=== PATIENT | male | born 1955 ===

== ENCOUNTER 2020-10-01 20:17 | Inpatient (IN) | payer MEDICARE, SELFPAY ==
--- NOTE | 2020-10-01 20:26 | CT_ITS ---
EXAMINATION: CT HEAD WITHOUT CONTRAST (STROKE PROTOCOL) CLINICAL INFORMATION: Stroke protocol. COMPARISON: None TECHNIQUE: Contiguous axial imaging was performed from the skull base to vertex without intravenous administration of contrast. This CT examination was performed using dose optimization techniques as appropriate, variously including the following: *Automated exposure control *Adjustment of mA and/or kV according to patient size (this includes techniques or standardized protocols for targeted exams where dose is matched to indication/reason for exam; i.e. extremities or head) *Use of iterative reconstruction technique DLP: 722 mGy-cm FINDINGS: There is no intracranial hemorrhage, hematoma, or extra-axial fluid collection. The ventricles are normal in size. There is no hydrocephalus, edema, or mass effect. The smith-white matter differentiation appears symmetric. There is no acute infarct or mass lesion. There is age-appropriate atrophy with prominence of the ventricles and the sulci and hypodensity of the periventricular white matter due to chronic small vessel ischemic disease. There are vascular calcifications of the internal carotid arteries bilaterally. The visualized sinuses and middle ears and mastoid air cells show no significant mucosal thickening. There are no air-fluid levels. CT/CT head for stroke IMPRESSION: No acute intracranial pathology. This critical result was discussed with Dr. Rosa on 10/01/2020, 8:35 PM. It was ascertained that the content and urgency of the report was understood at the time of direct communication.
[2020-10-01 20:29] LABS: Glucose, Whole Blood 117 mg/dL (60-115)
[2020-10-01 20:30] LABS: Prothrombin Time Whole Bld POC 11.6 sec (11.1-13.5)
[2020-10-01 20:32] VITALS: BMI 33.7
[2020-10-01 20:35] VITALS: BP 158/58; PULSE 83; PULSE 96; RESP 22; TEMP 36.6; O2SAT 90; BMI 33.7
[2020-10-01] MEDS: LORazepam 2 MG/ML VIAL IVPUSH (20:40)
--- NOTE | 2020-10-01 20:47 | ECG_ITS ---
Test Reason : POSSIBLE STROKE Blood Pressure : / mmHG Vent. Rate : 085 BPM Atrial Rate : 085 BPM P-R Int : 160 ms QRS Dur : 120 ms QT Int : 394 ms P-R-T Axes : 027 017 -45 degrees QTc Int : 468 ms Normal sinus rhythm T-wave inversion in Inferior leads Left ventricular hypertrophy with QRS widening Inferior infarct , age undetermined Abnormal ECG No previous ECGs available Referred By: Laina Rosa Electronically Signed By:GUILLERMO DEY MD
[2020-10-01 20:51] LABS: MANUAL DIFF FLAG NO
[2020-10-01 20:52] LABS: Basophils Absolute Auto 0.1 X10*3/uL (0.0-0.2); Basophils Percent Auto 0.9 % (0-2); Eosinophils Absolute Auto 0.2 X10*3/uL (0.0-0.4); Eosinophils Percent Auto 2.9 % (0-4); Hematocrit 36.9 % (42-52); Hemoglobin 12.7 g/dl (14.0-18.0); Imm Gran Abs Auto 0.03 X10*3/uL (0.00-0.03); Imm Gran Pct Auto 0.5 % (0.0-0.4); Lymphocytes Percent Auto 29.8 % (20-40); Mean Corpuscular HGB Conc 34.4 g/dl (31.0-36.0); Mean Corpuscular Hemoglobin 31.1 pg (27.0-33.0); Mean Corpuscular Volume 90.4 fL (80-98); Mean Platelet Volume 9.7 fL (9.4-12.4); Monocytes Absolute Auto 0.6 X10*3/uL (0.1-1.2); Monocytes Percent Auto 8.8 % (2-11); Neutrophils Absolute Auto 3.8 X10*3/uL (2.0-8.3); Neutrophils Percent Auto 57.1 % (45-73); Platelet Count 233 X10*3/uL (160-400); Red Blood Count 4.08 X10*6/uL (4.60-5.80); Red Cell Distribution Width 13.2 % (11.0-16.0); White Blood Count 6.6 X10*3/uL (4.8-10.8)
--- NOTE | 2020-10-01 20:52 | ED_ITS ---
HPI - Neuro Symptoms/Deficit General Chief Complaint: Stroke Stated Complaint: STROKE ALERT,LANEYW 2 HOURS AGO Time Seen by Provider: 10/01/20 20:23 Source: patient Mode of arrival: ambulatory Limitations: no limitations History of Present Illness HPI Narrative: Patient is brought by EMS. According to the family, patient was seen last normal at 18:30, they noticed that the patient when outside of the house to smoke, at that time patient was at his baseline alert and oriented x4 and ambulatory. 2 hours later, around 830, they heard a loud grown, the family went to check on him. Patient was altered, awake, flailing his upper and lower extremities, the only comment that he was able to follow was to look them when asked to do so. Otherwise patient was unable to follow any other commands. When patient came here to the emergency room, his presentation was similar, the only comment that he was able to follow was to look at us, patient continued fleeting his upper and lower extremities. Patient was taken immediately to CT scan. I spoke to the patient's sister's who gave the above-mentioned history. Patient's only past medical history is a cardiac arrhythmia for which she has a defibrillator, hypertension, hyperlipidemia, and ?tumor in his heart?. Patient has no history of alcoholism, drug abuse, anxiety. Related Data Home Medications Medication Instructions Recorded Confirmed amlodipine 10 mg PO DAILY 10/01/20 10/01/20 atorvastatin 20 mg PO BEDTIME 10/01/20 10/01/20 losartan 25 mg PO DAILY 10/01/20 10/01/20 naproxen sodium [Aleve] 220 mg PO BID PRN 10/01/20 10/01/20 Allergies Allergy/AdvReac Type Severity Reaction Status Date / Time No Known Allergies Allergy Verified 10/01/20 20:33 Review of Systems Review of Systems: Yes Unobtainable due to mental condition [facility] Past Medical History Medical History High cholesterol HTN (hypertension) Pacemaker Tumor Social History Social History Alcohol intake: current Alcohol intake frequency: 3 or more drinks per day Alcohol type: beer and hard liquor Smoking Status: Current every day smoker Use of substances other than those prescribed or required for medical reasons: No Advance Directives: No Advance Directives Information Provided: No Physical Exam Vital Signs: Vital Signs: Last Vital Signs Temp 98.6 F 10/01/20 22:00 Pulse 22 L 10/01/20 22:00 Resp 22 H 10/01/20 22:00 BP 121/61 10/01/20 22:00 Pulse Ox 2 L 10/01/20 22:00 Body Mass Index 33.7 Appearance: Alert. Unable to follow commands except to look at those when asked to do so. Eyes: Pupils equal, round and reactive to light. ENT: Pharynx normal. Neck: Normal inspection. Neck supple. No lymph nodes noted. No crepitus CVS: Normal heart rate and rhythm. Pulses normal. Normal S1 and S2 Respiratory: No respiratory distress. Breath sounds normal. No Wheezing. No rales Abdomen: Soft does not seem tender No rigidity. No distention. good BS x4 Skin: Skin warm and dry. Extremities: Patient is flailing his upper and lower extremities, unable to squeeze. Patient was given Ativan, patient became more calm a now able to hold his left upper and lower extremities up when asked to do so, unable to do so on the right side,. Seems that he is trying to speak but no words are coming out. Patient is very anxious, unable to calculate NIH accurately, approximately score of 10 Neuro: Patient is awake, unable to speak, able to hold up his left upper and lower extremity, unable to do so on the right side. However when patient came in he was flailing all 4 extremities Course Course Course Narrative: Patient's 1st CT scan was within normal limits. I spoke to Dr. Gudino, at this time we will go ahead and get a CTA, if there is an obstruction the patient will be transferred to [facility], otherwise the patient will be admitted to this hospital. CTA does not show any obstruction. We received a phone call from the patient's niece, now have more information that the patient is a heavy daily drinker. At this time, delirium tremens is suspected. After 2 mg of Ativan, patient calmed down, patient is moving all extremities, patient answering yes no questions, still unable to speak. I spoke with our hospitalist, patient being admitted for further evaluation and treatment. MDM - Neuro Symptoms/Deficit MDM Narrative Medical decision making narrative: At this time, it is unclear if the patient had a TIA versus delirium tremens. At this time, CVA is less likely, no large vessel occlusion. Patient's neurological symptoms are waxing and waning, different in upper lower extremities right and left side , all different on physical exams, no clear pattern. Differential Diagnosis Differential diagnosis: Likely convulsions, delirium, cerebrovascular accident and transient cerebral ischemia Lab Data Result diagrams: 10/01/20 20:45 10/01/20 20:45 Labs: Lab Results 10/01/20 10/01/20 10/01/20 Range/Units 20:25 20:26 20:45 WBC 6.6 (4.8-10.8) X10*3/uL RBC 4.08 L (4.60-5.80) X10*6/uL Hgb 12.7 L (14.0-18.0) g/dl Hct 36.9 L (42-52) % MCV 90.4 (80-98) fL MCH 31.1 (27.0-33.0) pg MCHC 34.4 (31.0-36.0) g/dl RDW 13.2 (11.0-16.0) % Plt Count 233 (160-400) X10*3/uL MPV 9.7 (9.4-12.4) fL Immature Gran % (Auto) 0.5 H (0.0-0.4) % Neut % (Auto) 57.1 (45-73) % Lymph % (Auto) 29.8 (20-40) % [place] % (Auto) 8.8 (2-11) % Eos % (Auto) 2.9 (0-4) % Baso % (Auto) 0.9 (0-2) % Lymph # (Auto) 2.0 (1.2-4.9) X10*3/uL [place] # (Auto) 0.6 (0.1-1.2) X10*3/uL Eos # (Auto) 0.2 (0.0-0.4) X10*3/uL Baso # (Auto) 0.1 (0.0-0.2) X10*3/uL Abs Immat Gran (auto) 0.03 (0.00-0.03) X10*3/uL Absolute Neuts (auto) 3.8 (2.0-8.3) X10*3/uL Absolute Nucleated RBC 0.000 (0.0-0.012) X10*3/uL Nucleated RBC % (auto) 0.0 (0.0-0.2) /100WBC PT (10.8-13.0) SEC Whole Blood PT 11.6 (11.1-13.5) sec INR (0.9-1.1) Whole Blood INR 1.0 (0.9-1.1) Sodium (135-145) mmol/L Potassium (3.3-5.1) mmol/l Chloride (96-108) mmol/L Carbon Dioxide (22-29) mmol/L Anion Gap (12-20) BUN (9-16) mg/dL Creatinine (0.5-1.4) mg/dL Estim Creat Clear Calc Estimated GFR POC Glucose 117 H (60-115) mg/dL Random Glucose (60-115) mg/dL Calcium (8.4-10.2) mg/dL Troponin I High Sens (<3.5-35.0) ng/L Hold Red Top Ethyl Alcohol mg/dL Coronavirus (PCR) (Negative) 10/01/20 10/01/20 10/01/20 Range/Units 20:45 20:45 20:45 WBC (4.8-10.8) X10*3/uL RBC (4.60-5.80) X10*6/uL Hgb (14.0-18.0) g/dl Hct (42-52) % MCV (80-98) fL MCH (27.0-33.0) pg MCHC (31.0-36.0) g/dl RDW (11.0-16.0) % Plt Count (160-400) X10*3/uL MPV (9.4-12.4) fL Immature Gran % (Auto) (0.0-0.4) % Neut % (Auto) (45-73) % Lymph % (Auto) (20-40) % [place] % (Auto) (2-11) % Eos % (Auto) (0-4) % Baso % (Auto) (0-2) % Lymph # (Auto) (1.2-4.9) X10*3/uL [place] # (Auto) (0.1-1.2) X10*3/uL Eos # (Auto) (0.0-0.4) X10*3/uL Baso # (Auto) (0.0-0.2) X10*3/uL Abs Immat Gran (auto) (0.00-0.03) X10*3/uL Absolute Neuts (auto) (2.0-8.3) X10*3/uL Absolute Nucleated RBC (0.0-0.012) X10*3/uL Nucleated RBC % (auto) (0.0-0.2) /100WBC PT 11.3 (10.8-13.0) SEC Whole Blood PT (11.1-13.5) sec INR 1.0 (0.9-1.1) Whole Blood INR (0.9-1.1) Sodium 136 (135-145) mmol/L Potassium 3.7 (3.3-5.1) mmol/l Chloride 97 (96-108) mmol/L Carbon Dioxide 28 (22-29) mmol/L Anion Gap 15 (12-20) BUN 14 (9-16) mg/dL Creatinine 1.02 (0.5-1.4) mg/dL Estim Creat Clear Calc 70.7 Estimated GFR > 60 POC Glucose (60-115) mg/dL Random Glucose 116 H (60-115) mg/dL Calcium 9.6 (8.4-10.2) mg/dL Troponin I High Sens 30.1 (<3.5-35.0) ng/L Hold Red Top Ethyl Alcohol mg/dL Coronavirus (PCR) (Negative) 10/01/20 10/01/20 10/01/20 Range/Units 20:45 20:45 21:22 WBC (4.8-10.8) X10*3/uL RBC (4.60-5.80) X10*6/uL Hgb (14.0-18.0) g/dl Hct (42-52) % MCV (80-98) fL MCH (27.0-33.0) pg MCHC (31.0-36.0) g/dl RDW (11.0-16.0) % Plt Count (160-400) X10*3/uL MPV (9.4-12.4) fL Immature Gran % (Auto) (0.0-0.4) % Neut % (Auto) (45-73) % Lymph % (Auto) (20-40) % [place] % (Auto) (2-11) % Eos % (Auto) (0-4) % Baso % (Auto) (0-2) % Lymph # (Auto) (1.2-4.9) X10*3/uL [place] # (Auto) (0.1-1.2) X10*3/uL Eos # (Auto) (0.0-0.4) X10*3/uL Baso # (Auto) (0.0-0.2) X10*3/uL Abs Immat Gran (auto) (0.00-0.03) X10*3/uL Absolute Neuts (auto) (2.0-8.3) X10*3/uL Absolute Nucleated RBC (0.0-0.012) X10*3/uL Nucleated RBC % (auto) (0.0-0.2) /100WBC PT (10.8-13.0) SEC Whole Blood PT (11.1-13.5) sec INR (0.9-1.1) Whole Blood INR (0.9-1.1) Sodium (135-145) mmol/L Potassium (3.3-5.1) mmol/l Chloride (96-108) mmol/L Carbon Dioxide (22-29) mmol/L Anion Gap (12-20) BUN (9-16) mg/dL Creatinine (0.5-1.4) mg/dL Estim Creat Clear Calc Estimated GFR POC Glucose (60-115) mg/dL Random Glucose (60-115) mg/dL Calcium (8.4-10.2) mg/dL Troponin I High Sens (<3.5-35.0) ng/L Hold Red Top See Note Ethyl Alcohol 78 mg/dL Coronavirus (PCR) NEGATIVE (Negative) Imaging Data Head CT for stroke: Radiologist's impression: There is no intracranial hemorrhage, hematoma, or extra-axial fluid collection. The ventricles are normal in size. There is no hydrocephalus, edema, or mass effect. The smith-white matter differentiation appears symmetric. There is no acute infarct or mass lesion. There is age-appropriate atrophy with prominence of the ventricles and the sulci and hypodensity of the periventricular white matter due to chronic small vessel ischemic disease. There are vascular calcifications of the internal carotid arteries bilaterally. The visualized sinuses and middle ears and mastoid air cells show no significant mucosal thickening. There are no air-fluid levels. CT/CT head for stroke IMPRESSION: No acute intracranial pathology. [address] [address] [address] Scan Report Signed Patient: Lorin Delgado#: [id number] : 3Acct:[id number] Age/Sex: 65 / MADM Date: 10/01/20 Loc: HO.ED Attending Dr: Ordering Physician: FLORENCIO ROSA MD Date of Service: 10/01/20 Procedure(s): CT angio head neck stroke Accession Number(s): [id number] cc: FLORENCIO ROSA MD~ EXAMINATION: CTA NECK WITH CONTRAST (STROKE) CTA BRAIN WITH CONTRAST (STROKE) CLINICAL INFORMATION: Suspect acute stroke. Assess for major vessel occlusion. Please call report. COMPARISON: CT head performed earlier same date TECHNIQUE: CTA of the head and neck was performed in the axial plane from the mediastinum to the skull vertex using 70 mL Omnipaque 350 intravenous contrast. Additional reformatted multiplanar images including maximum intensity projection MIP images are generated on the CT workstation. This CT examination was performed using dose optimization techniques as appropriate, variously including the following: *Automated exposure control *Adjustment of mA and/or kV according to patient size (this includes techniques or standardized protocols for targeted exams where dose is matched to indication/reason for exam; i.e. extremities or head) *Use of iterative reconstruction technique The degree of stenosis determined by NASCET criteria. DLP: 1714 mGy-cm FINDINGS: SOFT TISSUES AND LUNG APICES: No overt abnormality is appreciated. CTA NECK: The aortic arch has a classic configuration and the major arch vessel origins are non-stenotic. The vertebral arteries are co-dominant and both vertebral origins are widely patent. Both common carotid arteries are normal in course and caliber. Both internal carotid arteries demonstrate mild atherosclerotic plaque without significant stenosis. CTA HEAD: There is normal opacification of the major intracranial vessels. No acute proximal large vessel occlusion, focal flow-limiting stenosis, or saccular intracranial aneurysm is identified. No abnormal parenchymal enhancement or regional oligemia is visualized. There is atherosclerotic vascular disease of the intracranial internal carotid arteries. HEAD (delayed): No intracranial mass, intercerebral edema, hemorrhage, or midline shift is evident. The ventricles and sulci are stable in size and configuration. Moderate patchy subcortical and periventricular white matter low-attenuation changes reflective of chronic microangiopathy. No extra-axial collections are appreciated. No pathologic intracranial enhancement. The paranasal sinuses are well-aerated and clear. CT/CT angio head neck stroke IMPRESSION: * CTA of the head and neck fails to demonstrate evidence of flow-limiting stenosis or occlusion within the intracranial or extracranial arterial vasculature. * Moderate chronic white matter small vessel ischemic changes. Discharge Plan Discharge Clinical Impression: Brain TIA Patient Disposition: Admitted As Inpatient Prescriptions: No Action atorvastatin 20 mg Tablet 20 mg PO BEDTIME RF: 0 amlodipine 10 mg Tablet 10 mg PO DAILY RF: 0 losartan 25 mg Tablet 25 mg PO DAILY RF: 0 naproxen sodium [Aleve] 220 mg Capsule 220 mg PO BID PRN (Reason: Pain) RF: 0
[2020-10-01 20:55] LABS: Stroke Lab Use COMPLETE
[2020-10-01 20:57] LABS: Prothrombin Time 11.3 SEC (10.8-13.0)
[2020-10-01] MEDS: iohexoL 350 MG/ML 100 ML INFUS..BTL IV (21:04)
--- NOTE | 2020-10-01 21:14 | PC.NURSE ---
Pt's niece reports that this patient is an everyday drinker. She estimates that he drinks 2pints of lashanda and a 6 pack of beer daily. After IV ativan was given pt's jerking motions subsided. He is now able to follow some commands and is making more purposeful movements.
[2020-10-01 21:26] LABS: Anion Gap 15 (12-20); Blood Urea Nitrogen 14 mg/dL (9-16); Calcium 9.6 mg/dL (8.4-10.2); Carbon Dioxide 28 mmol/L (22-29); Chloride 97 mmol/L (96-108); Creatinine Clr Calc Pharmacy 70.7; Estimated Glomerular Filt Rate > 60; Glucose Random 116 mg/dL (60-115); Potassium 3.7 mmol/l (3.3-5.1); Sodium 136 mmol/L (135-145)
--- NOTE | 2020-10-01 21:30 | XR_ITS ---
EXAMINATION: CHEST 1 VIEW CLINICAL INFORMATION: Symptoms of stroke. COMPARISON: None. TECHNIQUE: An AP view of the chest is provided. FINDINGS: The cardiac silhouette is mildly enlarged. Intact midline sternal wires are present. The mediastinal and hilar contours are unremarkable. There are neither pleural effusions nor pneumothoraces. There are no consolidations. The osseous structures are unremarkable. XR/XR chest 1V IMPRESSION: No evidence for acute disease.
[2020-10-01] MEDS: Magnesium Sulfate/H2O 2 GM/50 ML PIGGYBACK IV (21:39)
--- NOTE | 2020-10-01 21:41 | PC.NURSE ---
Seizure precautions in place. Side rails of stretcher padded.
[2020-10-01 21:48] LABS: Troponin-I High Sensitivity 30.1 ng/L (<3.5-35.0)
[2020-10-01 21:51] LABS: Ethanol 78 mg/dL
[2020-10-01 22:00] VITALS: BP 121/61; PULSE 22; RESP 22; TEMP 37; O2SAT 2
[2020-10-01 22:21] LABS: SARS COV2 PCR INHOUSE NEGATIVE (Negative)
--- NOTE | 2020-10-01 22:33 | PC.NURSE ---
Shama Duron updated. She was able to obtain a home medication list. Med-rec updated. She states that the patient is non-compliant with his medications at home.
[2020-10-01 23:15] VITALS: BP 118/60; PULSE 74; RESP 18; O2SAT 94
--- NOTE | 2020-10-01 23:15 | PC.NURSE ---
report taken from erica and ed wyatt. pt currently has seizure precaution pads in place due to ?alcohol withdrawal. pt vitals wnl. hospitalist at bedside to see patient. banana bag pending from pharmacy, ed rn states pharmacy is aware, but banana bag still not present. this rn will mix it herself. pt sleeping but arousable to verbal stimuli,. mag running.
[2020-10-01 23:23] VITALS: BP 118/60; PULSE 75; RESP 22; TEMP 37; O2SAT 94
--- NOTE | 2020-10-01 23:37 | P.HPHOSP_ITS ---
History of Present Illness Date of Service: 10/01/20 Chief Complaint: Altered mental status this is a 65 yo M with pmhx of HTN, HLD who is brought in to the hospital by family, for altered mental status. patient is alert, oriented to self and place but has slurred speech and is very difficult to understand. According to the ED physician which obtain history from his family,patient's baseline is alert and oriented x3. Around 6:30 p.m. patient went out to smoke, around 7:00 p.m. the noticed him moaning and groaning in the room and shaking his arms and altered and unable to answer them. He was able to track with his eyes otherwise he cannot do anything else. On arrival of [facility] patient's right arm was weak, while in the ED patient was confused but followed with his eyes simple commands. According to the ED physician patient was flailing his arms but following simple commands. CT head was negative, CT angiogram showed no occlusion. Patient was given Ativan which appear to have improved his symptoms and made him more calm. On arrival to the ED patient hemodynamically stable with a respiratory rate of 22 satting 90% on room air. Currently satting 96% on 2 L of nasal cannula labs unremarkable chest x-ray negative, head neck CT angiogram showed no evidence of flow- limiting stenosis or occlusion within the intracranial or extracranial arterial vasculature. Head CT negative past medical history: Hypertension, hyperlipidemia, pacemaker surgical history: Denies family history denies Social history: Comes from home, denies tobacco, unclear how much he drinks but according to beneath drinks daily, although his assisted denies and patient denies that asthma Review of Systems Review of Systems: Yes Unobtainable due to mental condition and Unobtainable due to mental status [facility] Medical History High cholesterol HTN (hypertension) Pacemaker Tumor Social History Alcohol intake: current Alcohol intake frequency: 3 or more drinks per day Alcohol type: beer and hard liquor Smoking Status: Current every day smoker Use of substances other than those prescribed or required for medical reasons: No Advance Directives: No Advance Directives Information Provided: No Meds Allergies Allergy/AdvReac Type Severity Reaction Status Date / Time No Known Allergies Allergy Verified 10/01/20 20:33 Home Medications Medication Instructions Recorded Confirmed Type amlodipine 10 mg PO DAILY 10/01/20 10/01/20 History atorvastatin 20 mg PO BEDTIME 10/01/20 10/01/20 History losartan 25 mg PO DAILY 10/01/20 10/01/20 History naproxen sodium [Aleve] 220 mg PO BID PRN 10/01/20 10/01/20 History Physical Exam Vital Signs and Narrative: Vital Signs: Last Vital Signs Temp 98.6 F 10/01/20 23:23 Pulse 75 10/01/20 23:23 Resp 22 H 10/01/20 23:23 BP 118/60 10/01/20 23:23 Pulse Ox 94 10/01/20 23:23 Body Mass Index 33.7 Const: Other: oriented to self and person, lethargic, slurred speech General: cooperative Eyes: General: appearance normal, both eyes and all related structures Resp: Effort & Inspection: normal respiratory effort and able to speak in complete sentences Auscultation: clear to auscultation bilaterally Cardio: Rate: regular rate Rhythm: regular rhythm GI: Palpation (GI): Soft to palpation Auscultation: normal bowel sounds Skin: General skin exam: no rashes or lesions noted Neuro: Other: has bilateral weakness in the upper weakness is more significant in the right side, more weak on the right upper extremity. Strength is 1/5 in the right, 3/5 on the left Cognition (Neuro): normal cognition Extrem: General: Yes normal to inspection and Yes no pedal edema Results Labs CBC and Chem 7: 10/01/20 20:45 10/01/20 20:45 Labs: Laboratory Results - last 24 hr 10/01/20 10/01/20 10/01/20 20:25 20:26 20:45 MCV 90.4 MCH 31.1 MCHC 34.4 RDW 13.2 Plt Count 233 MPV 9.7 Immature Gran % (Auto) 0.5 H Neut % (Auto) 57.1 Lymph % (Auto) 29.8 [place] % (Auto) 8.8 Eos % (Auto) 2.9 Baso % (Auto) 0.9 Lymph # (Auto) 2.0 [place] # (Auto) 0.6 Eos # (Auto) 0.2 Baso # (Auto) 0.1 Abs Immat Gran (auto) 0.03 Absolute Neuts (auto) 3.8 Absolute Nucleated RBC 0.000 Nucleated RBC % (auto) 0.0 PT Whole Blood PT 11.6 INR Whole Blood INR 1.0 Anion Gap Estim Creat Clear Calc Estimated GFR POC Glucose 117 H Random Glucose Calcium Troponin I High Sens Hold Red Top Ethyl Alcohol Coronavirus (PCR) 10/01/20 10/01/20 10/01/20 20:45 20:45 20:45 MCV MCH MCHC RDW Plt Count MPV Immature Gran % (Auto) Neut % (Auto) Lymph % (Auto) [place] % (Auto) Eos % (Auto) Baso % (Auto) Lymph # (Auto) [place] # (Auto) Eos # (Auto) Baso # (Auto) Abs Immat Gran (auto) Absolute Neuts (auto) Absolute Nucleated RBC Nucleated RBC % (auto) PT 11.3 Whole Blood PT INR 1.0 Whole Blood INR Anion Gap 15 Estim Creat Clear Calc 70.7 Estimated GFR > 60 POC Glucose Random Glucose 116 H Calcium 9.6 Troponin I High Sens 30.1 Hold Red Top Ethyl Alcohol Coronavirus (PCR) 10/01/20 10/01/20 10/01/20 20:45 20:45 21:22 MCV MCH MCHC RDW Plt Count MPV Immature Gran % (Auto) Neut % (Auto) Lymph % (Auto) [place] % (Auto) Eos % (Auto) Baso % (Auto) Lymph # (Auto) [place] # (Auto) Eos # (Auto) Baso # (Auto) Abs Immat Gran (auto) Absolute Neuts (auto) Absolute Nucleated RBC Nucleated RBC % (auto) PT Whole Blood PT INR Whole Blood INR Anion Gap Estim Creat Clear Calc Estimated GFR POC Glucose Random Glucose Calcium Troponin I High Sens Hold Red Top See Note Ethyl Alcohol 78 Coronavirus (PCR) NEGATIVE Imaging Radiologist's Impressions: Impressions Head CT 10/01/20 20:26 IMPRESSION: No acute intracranial pathology. This critical result was discussed with Dr. Rosa on 10/01/2020, 8:35 PM. It was ascertained that the content and urgency of the report was understood at the time of direct communication. Head/Neck CTA 10/01/20 20:50 IMPRESSION: * CTA of the head and neck fails to demonstrate evidence of flow-limiting stenosis or occlusion within the intracranial or extracranial arterial vasculature. * Moderate chronic white matter small vessel ischemic changes. This critical result was discussed with Laina Rosa M.D. at 9:15 PM on 10/01/2020 and it was ascertained that the content and urgency of the report was understood at the time of direct communication. Chest X-Ray 10/01/20 21:30 IMPRESSION: No evidence for acute disease. Assessment and Plan (1) Encephalopathy: Status: Acute (2) High cholesterol: Status: Acute (3) HTN (hypertension): Status: Acute this is a 65-year-old male presents the hospital with altered mentation. # encephalopathy - acute stroke versus metabolic encephalopathy of unknown cause - negative CT angiogram, negative CT head, UDS pending, patient denies using any drugs - labs within normal limit range, patient afebrile, no evidence of infection plan: - Will obtain MRI in the morning - neurology consult - [employer] specialist # hpertension - stable - continue losartan and amlodipine # hyperlipidemia - continue atorvastatin DVT prophylaxis: Lovenox
--- NOTE | 2020-10-01 23:40 | PC.NURSE ---
first attempt to give report.
[2020-10-02] VITALS (7 sets, daily range): BP systolic 110–160; BP diastolic 56–83; PULSE 52–71; RESP 18–20; TEMP 36.1–36.9; O2SAT 95–98
--- NOTE | 2020-10-02 00:03 | PC.NURSE ---
report given at this time.
[2020-10-02] MEDS: 0.9 % Sodium Chloride Flush 3 ML SYRINGE IVFLUSH ×3 (01:05→15:07)
[2020-10-02] MEDS: Enoxaparin Sodium 40 MG/0.4 ML SYRINGE SUBCUT (06:05)
[2020-10-02 07:11] LABS: MANUAL DIFF FLAG NO
[2020-10-02 07:26] LABS: Basophils Percent Auto 0.6 % (0-2); Eosinophils Absolute Auto 0.2 X10*3/uL (0.0-0.4); Eosinophils Percent Auto 2.6 % (0-4); Hematocrit 34.1 % (42-52); Hemoglobin 11.2 g/dl (14.0-18.0); Imm Gran Abs Auto 0.03 X10*3/uL (0.00-0.03); Imm Gran Pct Auto 0.4 % (0.0-0.4); Lymphocytes Absolute Auto 1.4 X10*3/uL (1.2-4.9); Lymphocytes Percent Auto 19.4 % (20-40); Mean Corpuscular HGB Conc 32.8 g/dl (31.0-36.0); Mean Corpuscular Hemoglobin 30.4 pg (27.0-33.0); Mean Corpuscular Volume 92.7 fL (80-98); Mean Platelet Volume 10.3 fL (9.4-12.4); Monocytes Absolute Auto 0.7 X10*3/uL (0.1-1.2); Monocytes Percent Auto 10.1 % (2-11); Neutrophils Absolute Auto 4.7 X10*3/uL (2.0-8.3); Neutrophils Percent Auto 66.9 % (45-73); Platelet Count 227 X10*3/uL (160-400); Red Blood Count 3.68 X10*6/uL (4.60-5.80); Red Cell Distribution Width 13.4 % (11.0-16.0); White Blood Count 7.1 X10*3/uL (4.8-10.8)
[2020-10-02 07:53] LABS: Anion Gap 11 (12-20); Blood Urea Nitrogen 13 mg/dL (9-16); Carbon Dioxide 25 mmol/L (22-29); Chloride 103 mmol/L (96-108); Creatinine Clr Calc Pharmacy 85.9; Estimated Glomerular Filt Rate > 60; Glucose Random 91 mg/dL (60-115); Potassium 4.2 mmol/l (3.3-5.1); Sodium 135 mmol/L (135-145)
[2020-10-02] MEDS: amLODIPine Besylate 10 MG TABLET PO (08:24)
[2020-10-02] MEDS: Aspirin 81 MG TAB.CHEW PO (08:24)
[2020-10-02] MEDS: Losartan Potassium 25 MG TABLET PO (08:24)
[2020-10-02 08:29] LABS: Calcium 8.6 mg/dL (8.4-10.2)
[2020-10-02 09:07] LABS: Alanine Aminotransferase 21 U/L (0-40); Albumin Level 3.8 g/dL (3.5-5.0); Alkaline Phosphatase 88 U/L (39-117); Aspartate Amino Transferase 19 U/L (5-37); Bilirubin Direct < 0.2 mg/dL (0.0-0.5); Bilirubin Total 0.3 mg/dL (0.0-1.0); Total Protein 6.2 g/dL (6.5-8.0)
[2020-10-02 10:24] LABS: Cholesterol 158 mg/dL; Estimated Average Glucose 111 mg/dL; HDL Cholesterol 48 mg/dL; Hemoglobin A1c % 5.5 %; LDL Cholesterol Calculated 72 mg/dl; Triglycerides 194 mg/dL
--- NOTE | 2020-10-02 10:53 | P.PNIM_ITS ---
Subjective Subjective Date of Service: 10/02/20 Interval History: right sided weakness Cardiovascular Cardiovascular: Reports no additional cardiovascular complaints Respiratory Respiratory: Reports no additional respiratory complaints Physical Exam Vital Signs: Vital Signs: Last Vital Signs Temp 97.9 F 10/02/20 07:07 Pulse 67 10/02/20 08:24 Resp 20 10/02/20 07:07 BP 140/71 H 10/02/20 08:24 Pulse Ox 96 10/02/20 07:07 Body Mass Index 33.7 General: AO X 3, no acute distress, dysarthria Resp: CTA bilateral CVS: S1,S2,RRR GI: soft, non tender, non distended Neuro: RUE 4/5, RLE 4+/5 Psych: appropriate affect Objective Data Current Medications Generic Name Dose Route Start Last Admin Trade Name Freq PRN Reason Stop Dose Admin Acetaminophen 650 mg 10/02/20 00:35 Acetaminophen 325 Mg Tablet PO Q6H PRN Pain, Mild (Pain Scale 1-3) Amlodipine Besylate 10 mg 10/02/20 09:00 10/02/20 08:24 Amlodipine Besylate 10 Mg Tablet PO 10 mg DAILY [facility] Administration Protocol Aspirin 81 mg 10/02/20 09:00 10/02/20 08:24 Aspirin 81 Mg Tab.Chew PO 81 mg DAILY YAO Administration Atorvastatin Calcium 80 mg 10/02/20 21:00 Atorvastatin Calcium 80 Mg Tablet PO BEDTIME [facility] Docusate Sodium 100 mg 10/02/20 00:35 Docusate Sodium 100 Mg Capsule PO DAILY PRN Constipation Enoxaparin Sodium 40 mg 10/02/20 06:00 10/02/20 06:05 Enoxaparin Sodium 40 Mg/0.4 Ml Syringe SUBCUT 40 mg Q24H YAO Administration Losartan Potassium 25 mg 10/02/20 09:00 10/02/20 08:24 Losartan Potassium 25 Mg Tablet PO 25 mg DAILY YAO Administration Protocol Ondansetron HCl 4 mg 10/02/20 00:35 Ondansetron Hcl 4 Mg/2 Ml Vial IVPUSH Q8H PRN Nausea and Vomiting Sodium Chloride 3 ml 10/02/20 00:35 10/02/20 08:24 0.9 % Sodium Chloride Flush 3 Ml Syringe IVFLUSH 3 ml QSHIFT [facility] Administration Labs CBC & Chem 7: 10/02/20 05:50 10/02/20 05:50 Assessment and Plan (1) CVA (cerebral vascular accident): Status: Acute (2) High cholesterol: Status: Acute (3) HTN (hypertension): Status: Acute Assessment and Plan: 65-year-old male presented with dysarthria and right upper extremity weakness suspected CVA check MRI neuro eval telemetry PT/OT /speech continue aspirin statin HTN losartan, amlodipine
[2020-10-02] MEDS: Nicotine 21 MG PATCH.TD24 TRANSDERMA (13:49)
[2020-10-02 14:52] LABS: Glucose Urine UA NEG (NEG); Leukocyte Esterase Urine NEG (NEG); Nitrite Urine NEG (NEG); Urine Blood NEG (NEG); Urine Ketones NEG (NEG); Urine Protein NEG (NEG-TRACE)
[2020-10-02 14:53] LABS: Appearance Urine CLEAR; Color Urine YELLOW
[2020-10-02 15:20] LABS: Amphetamine Screen Urine Not Detected (Not Detect); Barbiturates, Urine Not Detected (Not Detect); Benzodiazepines Screen Urine Not Detected (Not Detect); Cannabinoid Screen Urine POSITIVE (Not Detect); Cocaine Screen Urine Not Detected (Not Detect); Opiate Screen Urine Not Detected (Not Detect); Phencyclidine Screen Urine Not Detected (Not Detect)
--- NOTE | 2020-10-02 17:22 | PM.NEUROCN ---
History of Present Illness Data of Consult Service Date: 10/02/20 Primary Care Provider: [place] Baptiste MD HPI Reason for consult: stroke with RUE weakness and slurred speech and altered mentation This is a 65-year-old right-handed man who was admitted after an acute change in mental status inability to speak and possible right-sided weakness. He tells me that he was watching TV and then had trouble talking. According to the ER note she went outside to smoke and when he did not come back from his room his family went in and found him moving his arms around but not talking and therefore he was brought to the emergency room. Initially he could not talk at all and his arms were flailing but he was making eye contact and following simple commands with his eyes and with his limbs but would not talk. He was given some Ativan and then he started to talk somewhat but still had slurred speech. He had a CT scan of the head which was negative and a CTA of the intracranial circulation which did not show any occlusive disease. He was admitted for observation. Since then his speech is almost back to normal although it is slightly thick. He has no weakness other than pre-existing right shoulder abduction who weakness from an old rotator cuff injury. He has no headache or dizziness. He has no previous history of stroke. Stroke risk factors include hyperlipidemia and hypertension. He has had open-heart surgery in the past and has a MRI friendly defibrillator. Review of Systems Eyes: Eyes: Reports no additional eye complaints ENT: Reports system reviewed and no additional complaints, except as documented and Reports Normal hearing present Cardiovascular: Cardiovascular: Reports no additional cardiovascular complaints Respiratory: Respiratory: Reports no additional respiratory complaints Gastrointestinal: Gastrointestinal: Reports no additional gastrointestinal complaints Genitourinary: Genitourinary: Reports no additional male genitourinary complaints Musculoskeletal: Musculoskeletal: Reports no additional musculoskeletal complaints Integumentary/Breasts: Skin/Breast: Reports system reviewed and no additional complaints, except as docu Neurologic: Reports as per HPI and Reports Normal hearing present Psychiatric: Psychiatric: Reports as per HPI Endocrine: Endocrine: Reports no additional endocrine complaints Hematologic/Lymphatic: Hematologic/Lymphatic: Reports no additional hematologic/lymphatic complaints Allergic/Immunologic: Allergic/Immunologic: Reports no additional allergic/immunologic complaints [facility] Past Medical History Medical History (Updated 10/02/20 @ 17:30 by Jasmin Gudino MD) High cholesterol HTN (hypertension) Left ventricular aneurysm Tumor Social History Social History Household Members: Family Housing: Unknown / Unable to assess Do you presently have visiting nurse or other home services: No (unknown) Alcohol intake: current Alcohol intake frequency: 3 or more drinks per day Alcohol type: beer and hard liquor Smoking Status: Current every day smoker Tobacco Type: Cigarette Use of substances other than those prescribed or required for medical reasons: Unknown Advance Directives: No Advance Directives Information Provided: No Do you have thoughts of harming others: None Do you have a plan to hurt others: No Plan Recently lost weight without trying: Unsure Meds Allergies Allergy/AdvReac Type Severity Reaction Status Date / Time No Known Allergies Allergy Verified 10/01/20 20:33 Home Medications Medication Instructions Recorded Confirmed Type amlodipine 10 mg PO DAILY 10/01/20 10/01/20 History atorvastatin 20 mg PO BEDTIME 10/01/20 10/01/20 History losartan 25 mg PO DAILY 10/01/20 10/01/20 History naproxen sodium [Aleve] 220 mg PO BID PRN 10/01/20 10/01/20 History Physical Exam Vital Signs: Vital Signs: Last Vital Signs Temp 98.5 F 10/02/20 15:59 Pulse 64 10/02/20 15:59 Resp 18 10/02/20 15:59 BP 134/69 10/02/20 15:59 Pulse Ox 95 10/02/20 15:59 Body Mass Index 33.7 Const: General: cooperative, comfortable, no acute distress, well developed, alert and awake Nutritional Appearance: well nourished Orientation/consciousness: oriented to person, oriented to place and oriented to time Limitations: no limitations HENMT: Head: Yes normal to inspection, Yes normocephalic and Yes atraumatic Ears: hearing grossly normal bilaterally General nose exam: Normal external nose present Face and sinus: Yes normal facial exam Mouth: Normal oral and palatal mucosa present Eyes: General: appearance normal, both eyes and all related structures Visual Reyna: normal visual reyna by confrontation Alignment and Position: alignment normal Periorbital: periorbital findings normal Eyelids: Yes eyelids normal Conjunctivae: conjunctivae normal Sclerae: sclerae normal Corneas: corneas normal Pupils: Equal, round and reactive pupils present and Pupil accommodation reflex normal EOM: EOMs intact bilaterally Direct Ophthalmoscopy: normal light reflex Neck: Neck: Yes normal visual inspection, Yes full ROM and Yes no meningeal signs Thyroid: Thyroid normal Carotids: normal carotid upstroke and bounding pulses Chest: Chest palpation & inspection: normal inspection of the chest Resp: Effort & Inspection: normal respiratory effort Auscultation: clear to auscultation bilaterally Cardio: Rate: regular rate Rhythm: regular rhythm Heart sounds: S1 normal heart sound present and S2 normal heart sound present Peripheral pulses: Peripheral pulses 2+ throughout GI: Inspection: Yes normal to inspection Percussion: Yes normal to percussion Auscultation: normal bowel sounds Rectal Exam - Male: Yes deferred Back/Spine/Pelvis: Cervical Spine: normal cervical lordosis and cervical ROM normal Thoracic/Lumbar Spine: thoracic and lumbar spine normal to inspection Skin: General skin exam: no rashes or lesions noted Neuro: Other: Weakness of right shoulder abduction 4/5 General: oriented to person, oriented to place, oriented to time, gait normal, tone normal, moves all extremities, Normal light touch and pain sensation, no meningeal signs, no focal motor deficits, CN's II-XI intact bilaterally, normal sensation to monofilament and deep tendon reflexes 2+ bilaterally Cranial nerves: Yes CN's II-XII intact bilaterally, Yes Equal, round and reactive pupils present, Yes Bilaterally intact EOM present, Yes Nystagmus not present, Yes Normal facial strength present, Yes Midline tongue present, Yes Normal gag reflex present, Yes Symmetric palate elevation present, Yes Normal hearing present and Yes Ability to bilaterally rotate head present Cognition (Neuro): normal cognition Speech: Other speech findings present (Neuro) Gait exam (Neuro): Normal gait present Motor exam (neuro): 5/5 motor strength present throughout, no tremor noted, no asterixis, Motor fasciculations not present, Normal motor muscle tone present throughout and Motor abnormalities not present Sensory Exam: Bilaterally intact graphesthesia Deep tendon reflexes (DTR's): Right triceps reflex intensity grade: 2+, Left triceps reflex intensity grade: 2+, Rt Biceps (C5, C6): 2+, Left biceps reflex intensity grade: 2+, Right brachioradialis reflex intensity grade: 2+, Left brachioradialis reflex intensity grade: 2+, Right patellar reflex intensity grade: 2+, Left patellar reflex intensity grade: 2+, Right ankle reflex intensity grade: 2+ and Left ankle reflex intensity grade: 2+ Plantar Reflex Responses: downgoing: right, left and bilateral Coordination: [id number] test normal, [id number] test normal, tandem gait normal and Romberg test negative Pupils: Normal pupillary reactivity/response: bilateral Extrem: General: Yes normal to inspection, Yes normal exam except as noted and Yes no pedal edema Psych: Appearance: grossly normal Mental Status: mental status grossly normal Speech and movement: Normal speech and movement present and Clear speech present Affect: normal affect Attitude: cooperative Thought process: Normal thought process present Results Labs CBC & Chem 7: 10/02/20 05:50 10/02/20 05:50 Labs: Short CBC 10/01/20 10/02/20 Range/Units 20:45 05:50 WBC 6.6 7.1 (4.8-10.8) X10*3/uL Hgb 12.7 L 11.2 L (14.0-18.0) g/dl Hct 36.9 L 34.1 L (42-52) % Plt Count 233 227 (160-400) X10*3/uL BMP 10/01/20 10/02/20 20:45 05:50 Sodium 136 135 Potassium 3.7 4.2 Chloride 97 103 Carbon Dioxide 28 25 BUN 14 13 Creatinine 1.02 0.84 Calcium 9.6 8.6 D Liver Function 10/02/20 Range/Units 05:50 Total Bilirubin 0.3 (0.0-1.0) mg/dL Direct Bilirubin < 0.2 (0.0-0.5) mg/dL AST 19 (5-37) U/L ALT 21 (0-40) U/L Alkaline Phosphatase 88 (39-117) U/L Albumin 3.8 (3.5-5.0) g/dL Urine 10/02/20 Range/Units 13:54 Urine Color YELLOW Urine Appearance CLEAR Urine pH 6.0 (5.0-8.0) Ur Specific Bud 1.010 (1.005-1.025) Urine Protein NEG (NEG-TRACE) MG/DL Urine Glucose (UA) NEG (NEG) MG/DL Assessment and Plan (1) CVA (cerebral vascular accident): Problem details: Possible small deep left hemisphere stroke Status: Acute MRI of the brain to confirm if there has been a stroke. CTA does not show any occlusive disease (2) High cholesterol: Status: Acute Treat with statins (3) HTN (hypertension): Status: Acute (4) AICD (automatic cardioverter/defibrillator) present: Problem details: Visia AF MRI VR SureScan [id number] Status: Acute (5) CAD (coronary artery disease): Status: Acute
--- NOTE | 2020-10-02 20:14 | MHC.STROKE ---
LATE ENTRY FOR 10/01/202016. EMS PRE-NOTIFIED 2011. ?SEIZURE, RIGHT GAZE. LAST KNOWN WELL 1830, DISCOVERED AT 1900. [place] [facility], INITIAL NIHSS = 10, STAT CT HEAD 2026, NO BLEED, FOLLOWED BY CTA H/N AT 2055, NO LARGE VESSEL OCCLUSION NOTED. EXCLUDED FROM TPA (ALTEPLASE) DUE TO SEIZURE AT ONSET. UNCERTAIN OF STROKE DIAGNOSIS. NEUROLOGIST SAW PATIENT TODAY AND SYMPTOMS IMPROVED NON-DISABLING. WAS KEPT NPO, PASSED SWALLOW SCREEN THIS AM PRIOR TO PO.STROKE INTERVENTIONS ADDED. MRI PENDING FOR TOMORROW, AICD IMPLANTABLE DEVICE, DR FERNANDEZ MENTIONED IT WAS MRI COMPATABLE. I WILL CONTINUE TO FOLLOW.
--- NOTE | 2020-10-02 20:26 | MHC.STROKE ---
Addendum entered by Julia Kendall RN 10/04/20 11:45: I MET WITH PATIENT TO DISCUSS HIS MRI RESULTS AND STROKE RISK FACTORS. HTN ,HLD, ANEURYSM SURGERY WITH AICD, OBESITY, ALCOHOL USE, AND SMOKING. I PROVIDED SMOKING CESSATION EDUCATION, HE IS WEARING A PATCH AND WILL TRY TO QUIT. WE ALSO REVIEWED ALL HIS LABS, HE IS COMPLIANT WITH HIS MEDICATIONS AND IS MOTIVATED TO IMPROVE HIS HEALTH. I EXPLAINED THAT HE WILL NEED AN OUTPATIENT EEG AND WHY. REVIEWED CALLING 911 IF SUDDEN OR ABRUPT STROKE S&S SYMPTOMS OCCUR. ALL HE REMEMBERS FROM THE EVENT IS THAT HIS MOUTH GOT DRY AND HE STARTED SHAKING ALL OVER. I DID REASSURE HIM AND HE WILL FOLLOW UP WITH HIS PCP AND OP TESTING ORDERED. Original Note: PATIENT WILL NEED SMOKING CESSATION EDUCAITON BY RESPIRATORY THERAPY, PLEASE NOTIFY THEM.
[2020-10-02] MEDS: Atorvastatin Calcium 80 MG TABLET PO (20:45)
[2020-10-03] MEDS: 0.9 % Sodium Chloride Flush 3 ML SYRINGE IVFLUSH ×3 (00:04→18:00)
[2020-10-03 03:29] VITALS: BP 137/71; PULSE 61; RESP 20; TEMP 36.9; O2SAT 98
[2020-10-03] MEDS: Enoxaparin Sodium 40 MG/0.4 ML SYRINGE SUBCUT (05:38)
[2020-10-03 05:39] VITALS: O2SAT 97
[2020-10-03 07:54] VITALS: BP 126/67; PULSE 52; RESP 18; TEMP 36.7; O2SAT 98
[2020-10-03] MEDS: Losartan Potassium 25 MG TABLET PO (08:05)
[2020-10-03] MEDS: Aspirin 81 MG TAB.CHEW PO (08:05)
[2020-10-03] MEDS: amLODIPine Besylate 10 MG TABLET PO (08:05)
--- NOTE | 2020-10-03 10:16 | HO.PM.IMPN ---
Subjective Subjective Interval History: right sided weakness Physical Exam Vital Signs: Vital Signs: Last Vital Signs Temp 98.1 F 10/03/20 07:54 Pulse 52 10/03/20 07:54 Resp 18 10/03/20 07:54 BP 126/67 10/03/20 07:54 Pulse Ox 98 10/03/20 07:54 Body Mass Index 33.7 General: AO X 3, no acute distress, dysarthria Resp: CTA bilateral CVS: S1,S2,RRR GI: soft, non tender, non distended Neuro: RUE 4/5, RLE 4+/5 Psych: appropriate affect Objective Data Current Medications Generic Name Dose Route Start Last Admin Trade Name Freq PRN Reason Stop Dose Admin Acetaminophen 650 mg 10/02/20 00:35 Acetaminophen 325 Mg Tablet PO Q6H PRN Pain, Mild (Pain Scale 1-3) Amlodipine Besylate 10 mg 10/02/20 09:00 10/03/20 08:05 Amlodipine Besylate 10 Mg Tablet PO 10 mg DAILY YAO Administration Protocol Aspirin 81 mg 10/02/20 09:00 10/03/20 08:05 Aspirin 81 Mg Tab.Chew PO 81 mg DAILY YAO Administration Atorvastatin Calcium 80 mg 10/02/20 21:00 10/02/20 20:45 Atorvastatin Calcium 80 Mg Tablet PO 80 mg BEDTIME YAO Administration Docusate Sodium 100 mg 10/02/20 00:35 Docusate Sodium 100 Mg Capsule PO DAILY PRN Constipation Enoxaparin Sodium 40 mg 10/02/20 06:00 10/03/20 05:38 Enoxaparin Sodium 40 Mg/0.4 Ml Syringe SUBCUT 40 mg Q24H YAO Administration Losartan Potassium 25 mg 10/02/20 09:00 10/03/20 08:05 Losartan Potassium 25 Mg Tablet PO 25 mg DAILY YAO Administration Protocol Nicotine 21 mg 10/02/20 12:40 10/03/20 08:06 Nicotine 21 Mg Patch.Td24 TRANSDERMA Not Given DAILY YAO Ondansetron HCl 4 mg 10/02/20 00:35 Ondansetron Hcl 4 Mg/2 Ml Vial IVPUSH Q8H PRN Nausea and Vomiting Sodium Chloride 3 ml 10/02/20 00:35 10/03/20 08:05 0.9 % Sodium Chloride Flush 3 Ml Syringe IVFLUSH 3 ml QSHIFT YAO Administration Labs CBC & Chem 7: 10/02/20 05:50 10/02/20 05:50 Assessment and Plan (1) CVA (cerebral vascular accident): Problem details: Possible small deep left hemisphere stroke Status: Acute (2) High cholesterol: Status: Acute (3) HTN (hypertension): Status: Acute Assessment and Plan: 65-year-old male presented with dysarthria and right upper extremity weakness suspected CVA check MRI (AICD appears to be MRI compatible) defecits mostly resolved no afib on telemetry PT cleared, follow up OT /speech continue aspirin, statin HTN losartan, amlodipine CAD asa, statin Chronic systolic chf ? not on beta kareem, continue arb, outpatient follow up with cardiology ETOH dependence no evidence of withdrawl, continue CIWA smoking cessation
[2020-10-03 10:29] VITALS: BMI 33.7
[2020-10-03 11:25] VITALS: BP 121/59; PULSE 54; RESP 20; TEMP 37; O2SAT 96
--- NOTE | 2020-10-03 11:38 | MHC.CM.PN ---
met with pt who is indepedent c plan [facility] no servceis pending pt and ot eval
--- NOTE | 2020-10-03 13:00 | MR_ITS ---
EXAMINATION: BRAIN MRI WITHOUT CONTRAST CLINICAL INFORMATION: Encephalopathy. COMPARISON: CT angiogram head and neck 10/01/2020. TECHNIQUE: Multiplanar MR imaging the brain was performed without contrast. FINDINGS: There is a tiny focus of gliosis and encephalomalacia involving the left middle frontal gyrus and numerous foci of T2 FLAIR signal hyperintensity are visualized throughout the periventricular white matter and maira. No acute territorial infarct. No pathological magnetic susceptibility artifact. Intracranial vascular flow voids are grossly maintained. There is no intracranial mass effect or midline shift. No abnormal extra-axial collection. Lateral and third ventricles are proportionate to the subarachnoid spaces. No hydrocephalus. Midline structures including the cervicomedullary junction are normal. No acute bone marrow signal changes. There is no mastoid or middle ear effusion. No active paranasal sinus disease. MR/MR head/brain wo con IMPRESSION: There is a tiny chronic cortical infarct involving the left middle frontal gyrus and numerous chronic small vessel ischemic changes throughout the periventricular white matter and maira. No evidence of acute territorial infarct or hemorrhage.
[2020-10-03 15:11] VITALS: BP 121/67; PULSE 54; RESP 18; TEMP 37.1; O2SAT 96
[2020-10-03 19:03] VITALS: BP 125/75; PULSE 60; RESP 18; TEMP 36.9; O2SAT 98
[2020-10-03] MEDS: Atorvastatin Calcium 80 MG TABLET PO (21:28)
[2020-10-04] VITALS: BP 143/75; PULSE 60; RESP 18; TEMP 36.5; O2SAT 95
[2020-10-04] MEDS: 0.9 % Sodium Chloride Flush 3 ML SYRINGE IVFLUSH ×2 (01:40→09:04)
[2020-10-04 04:00] VITALS: BP 145/75; PULSE 55; RESP 18; TEMP 36.6; O2SAT 96
[2020-10-04] MEDS: Enoxaparin Sodium 40 MG/0.4 ML SYRINGE SUBCUT (05:02)
[2020-10-04 07:20] VITALS: BP 131/58; PULSE 47; RESP 20; TEMP 36.6; O2SAT 94
[2020-10-04] MEDS: Aspirin 81 MG TAB.CHEW PO (09:04)
[2020-10-04] MEDS: amLODIPine Besylate 10 MG TABLET PO (09:04)
[2020-10-04] MEDS: Losartan Potassium 25 MG TABLET PO (09:04)
--- NOTE | 2020-10-04 10:05 | P.DS_ITS ---
DS: Providers Provider Date of admission: 10/01/20 23:16 Primary care physician: [place] Baptiste MD Consults: 10/02/20 01:51 Consult to Neurology Routine Consulting Provider: [facility] Reason for consultation: encephalopathy, weakness DS: Diagnosis Discharge Diagnosis (1) CVA (cerebral vascular accident): Status: Acute Problem details: Possible small deep left hemisphere stroke (2) High cholesterol: Status: Acute (3) HTN (hypertension): Status: Acute DS: Summary Hospital Course Hospital Course: Patient was admitted for possible stroke. He underwent MRI which showed tiny chronic cortical infarct involving the left middle frontal gyrus and numerous chronic small-vessel ischemic changes throughout the periventricular white matter and maira but no evidence of acute infarct. He was seen by Neurology who recommended following up outpatient for EEG to rule out seizure. He will be started on aspirin as he does have history of coronary disease and CVA. He will continue his statin. Most of the patient's deficits Have resolved at this time. Time Spent with Patient Time attestation: Total time spent providing and/or coordinating discharge services: Physical Exam Vital Signs: Vital Signs: Last Vital Signs Temp 97.9 F 10/04/20 07:20 Pulse 47 L 10/04/20 07:20 Resp 20 10/04/20 07:20 BP 131/58 L 10/04/20 07:20 Pulse Ox 94 10/04/20 07:20 Body Mass Index 33.7 General: AO X 3, no acute distress Resp: CTA bilateral CVS: S1,S2,RRR GI: soft, non tender, non distended Neuro: motor grossly intact Psych: appropriate affect DS: Data Data Completed and Pending Labs on day of discharge: 10/01/20 20:25 Glucose, Whole Blood Routine 10/01/20 20:26 CT head for stroke Stat Prothrombin Time Whole Bld POC Routine ~PT, ~INR - [facility] Routine 10/01/20 20:37 LORazepam [Ativan] 2 mg .ROUTE .STK-MED ONE 10/01/20 20:45 Basic Metabolic Panel Stat Complete Blood Count Auto Diff Stat Ethanol Stat Hold Red Stat Prothrombin Time INR Stat Stroke Lab Use Stat Troponin-I High Sensitivity Stat 10/01/20 20:47 ECG 12 lead EKG Stat EKG Documentation DIRECTED 10/01/20 20:50 CT angio head neck stroke Stat 10/01/20 21:03 iohexoL 350 MG/ML [Omnipaque 350 MG/ML] 100 ml IV ONCE ONE 10/01/20 21:16 Magnesium Sulfate/H2O 2 gm in 50 ml IV ONCE 10/01/20 21:22 SARS COV2 PCR INHOUSE Stat 10/01/20 21:30 XR chest 1V Stat 0.9 % Sodium Chloride [Ns] 1,000 ml Folic Acid 1 mg Thiamine HCL 100 mg MVI, Adult [Infuvite Adult] 10 ml IV 999 mls/hr 10/01/20 21:40 Add Laboratory Test Stat 10/01/20 21:42 LORazepam [Ativan] 2 mg IVPUSH ONCE ONE 10/01/20 23:09 Transfer Order Routine 10/01/20 23:29 MVI, Adult [Infuvite Adult] 10 ml .ROUTE .STK-MED ONE Thiamine HCL 200 mg .ROUTE .STK-MED ONE 10/02/20 05:50 Basic Metabolic Panel Routine Complete Blood Count Auto Diff Routine Hemoglobin A1c Routine Lipid Panel Routine Liver Panel Routine 10/02/20 08:01 Assess CIWA scale Q4HR 10/02/20 08:09 Add Laboratory Test Routine 10/02/20 Breakfast Regular Diet 10/02/20 10:10 Add Laboratory Test Routine 10/02/20 13:54 Drug Screen Urine Stat UA CC w/rflx Micro + Cult Stat 10/02/20 21:00 Atorvastatin Calcium [Lipitor] 20 mg PO BEDTIME 10/03/20 13:00 MR head/brain wo con Stat Laboratory Last Values WBC 7.1 X10*3/uL (4.8-10.8) 10/02/20 05:50 RBC 3.68 X10*6/uL (4.60-5.80) L 10/02/20 05:50 Hgb 11.2 g/dl (14.0-18.0) L 10/02/20 05:50 Hct 34.1 % (42-52) L 10/02/20 05:50 MCV 92.7 fL (80-98) 10/02/20 05:50 MCH 30.4 pg (27.0-33.0) 10/02/20 05:50 MCHC 32.8 g/dl (31.0-36.0) 10/02/20 05:50 RDW 13.4 % (11.0-16.0) 10/02/20 05:50 Plt Count 227 X10*3/uL (160-400) 10/02/20 05:50 MPV 10.3 fL (9.4-12.4) 10/02/20 05:50 Immature Gran % (Auto) 0.4 % (0.0-0.4) 10/02/20 05:50 Neut % (Auto) 66.9 % (45-73) 10/02/20 05:50 Lymph % (Auto) 19.4 % (20-40) L 10/02/20 05:50 Weber % (Auto) 10.1 % (2-11) 10/02/20 05:50 Eos % (Auto) 2.6 % (0-4) 10/02/20 05:50 Baso % (Auto) 0.6 % (0-2) 10/02/20 05:50 Lymph # (Auto) 1.4 X10*3/uL (1.2-4.9) 10/02/20 05:50 Weber # (Auto) 0.7 X10*3/uL (0.1-1.2) 10/02/20 05:50 Eos # (Auto) 0.2 X10*3/uL (0.0-0.4) 10/02/20 05:50 Baso # (Auto) 0.0 X10*3/uL (0.0-0.2) 10/02/20 05:50 Abs Immat Gran (auto) 0.03 X10*3/uL (0.00-0.03) 10/02/20 05:50 Absolute Neuts (auto) 4.7 X10*3/uL (2.0-8.3) 10/02/20 05:50 Absolute Nucleated RBC 0.000 X10*3/uL (0.0-0.012) 10/02/20 05:50 Nucleated RBC % (auto) 0.0 /100WBC (0.0-0.2) 10/02/20 05:50 PT 11.3 SEC (10.8-13.0) 10/01/20 20:45 Whole Blood PT 11.6 sec (11.1-13.5) 10/01/20 20:26 INR 1.0 (0.9-1.1) 10/01/20 20:45 Whole Blood INR 1.0 (0.9-1.1) 10/01/20 20:26 Sodium 135 mmol/L (135-145) 10/02/20 05:50 Potassium 4.2 mmol/l (3.3-5.1) 10/02/20 05:50 Chloride 103 mmol/L (96-108) 10/02/20 05:50 Carbon Dioxide 25 mmol/L (22-29) 10/02/20 05:50 Anion Gap 11 (12-20) L 10/02/20 05:50 BUN 13 mg/dL (9-16) 10/02/20 05:50 Creatinine 0.84 mg/dL (0.5-1.4) 10/02/20 05:50 Estim Creat Clear Calc 85.9 10/02/20 05:50 Estimated GFR > 60 10/02/20 05:50 POC Glucose 117 mg/dL (60-115) H 10/01/20 20:25 Random Glucose 91 mg/dL (60-115) 10/02/20 05:50 Estimat Average Glucose 111 mg/dL 10/02/20 05:50 Hemoglobin A1c % 5.5 % 10/02/20 05:50 Calcium 8.6 mg/dL (8.4-10.2) D 10/02/20 05:50 Total Bilirubin 0.3 mg/dL (0.0-1.0) 10/02/20 05:50 Direct Bilirubin < 0.2 mg/dL (0.0-0.5) 10/02/20 05:50 AST 19 U/L (5-37) 10/02/20 05:50 ALT 21 U/L (0-40) 10/02/20 05:50 Alkaline Phosphatase 88 U/L (39-117) 10/02/20 05:50 Troponin I High Sens 30.1 ng/L (<3.5-35.0) 10/01/20 20:45 Total Protein 6.2 g/dL (6.5-8.0) L 10/02/20 05:50 Albumin 3.8 g/dL (3.5-5.0) 10/02/20 05:50 Triglycerides 194 mg/dL 10/02/20 05:50 Cholesterol 158 mg/dL 10/02/20 05:50 LDL Cholesterol, Calc 72 mg/dl 10/02/20 05:50 HDL Cholesterol 48 mg/dL 10/02/20 05:50 Hold Red Top See Note 10/01/20 20:45 Urine Color YELLOW 10/02/20 13:54 Urine Appearance CLEAR 10/02/20 13:54 Urine pH 6.0 (5.0-8.0) 10/02/20 13:54 Ur Specific [place] 1.010 (1.005-1.025) 10/02/20 13:54 Urine Protein NEG MG/DL (NEG-TRACE) 10/02/20 13:54 Urine Glucose (UA) NEG MG/DL (NEG) 10/02/20 13:54 Urine Ketones NEG MG/DL (NEG) 10/02/20 13:54 Urine Blood NEG (NEG) 10/02/20 13:54 Urine Nitrite NEG (NEG) 10/02/20 13:54 Ur Leukocyte Esterase NEG (NEG) 10/02/20 13:54 Urine Opiates Screen Not Detected (Not Detect) 10/02/20 13:54 Ur Barbiturates Screen Not Detected (Not Detect) 10/02/20 13:54 Ur Phencyclidine Scrn Not Detected (Not Detect) 10/02/20 13:54 Ur Amphetamines Screen Not Detected (Not Detect) 10/02/20 13:54 U Benzodiazepines Scrn Not Detected (Not Detect) 10/02/20 13:54 Urine Cocaine Screen Not Detected (Not Detect) 10/02/20 13:54 U Marijuana (THC) Screen POSITIVE (Not Detect) H 10/02/20 13:54 Ethyl Alcohol 78 mg/dL 10/01/20 20:45 Coronavirus (PCR) NEGATIVE (Negative) 10/01/20 21:22 Discharge Plan Discharge Patient Disposition: Home, Self-Care Referrals: Rocio Toledo MD [Physician] - [place] Baptiste MD [Primary Care Provider] - Discharge Medications: New aspirin 81 mg Tablet,Chewable 81 mg PO DAILY Qty: 30 RF: 0 Continued atorvastatin 20 mg Tablet 20 mg PO BEDTIME RF: 0 amlodipine 10 mg Tablet 10 mg PO DAILY RF: 0 losartan 25 mg Tablet 25 mg PO DAILY RF: 0 naproxen sodium [Aleve] 220 mg Capsule 220 mg PO BID PRN (Reason: Pain) RF: 0 Discharge Orders: Discharge Order (Routine); Ordered 10/04/20 Ordered By: Lorenzo Giraldo Activity on Discharge: As tolerated Other Ambulatory Orders: EEG awake and asleep (Routine) Timeframe: 1 Week Facility: [facility] - Location: Radiology Ordered By: Lorenzo Giraldo Visit Report Forms: Patient Portal Discharge page Care Plan Goals: recovery Health Concerns: stroke like symptoms Plan of Treatment: start asa, follow up with neuro for EEG
--- NOTE | 2020-10-04 10:12 | MHC.CM.PN ---
pt dcd home no servceis
--- NOTE | 2020-10-04 10:36 | P.PNNE_ITS ---
Subjective Subjective Date of Service: 10/04/20 Interval History: He is back to his baseline. The right shoulder weakness which is chronic, persistent. His speech is normal. MRI of the brain shows chronic mild microvascular changes. No acute infarct. Physical Exam Vital Signs: Vital Signs: Last Vital Signs Temp 97.9 F 10/04/20 07:20 Pulse 47 L 10/04/20 07:20 Resp 20 10/04/20 07:20 BP 131/58 L 10/04/20 07:20 Pulse Ox 94 10/04/20 07:20 Body Mass Index 33.7 Const: General: cooperative, comfortable, no acute distress, well developed, alert and awake Nutritional Appearance: well nourished Orientation/consciousness: oriented to person, oriented to place and oriented to time Limitations: no limitations HENMT: Head: Yes normal to inspection, Yes normocephalic and Yes atraumatic Ears: hearing grossly normal bilaterally General nose exam: Normal external nose present Face and sinus: Yes normal facial exam Mouth: Normal oral and palatal mucosa present Eyes: General: appearance normal, both eyes and all related structures Visual Aguila: normal visual aguila by confrontation Alignment and Position: alignment normal Periorbital: periorbital findings normal Eyelids: Yes eyelids normal Conjunctivae: conjunctivae normal Sclerae: sclerae normal Corneas: corneas normal Pupils: Equal, round and reactive pupils present and Pupil accommodation reflex normal EOM: EOMs intact bilaterally Direct Oph thalmoscopy: normal light reflex Neck: Neck: Yes normal visual inspection, Yes full ROM and Yes no meningeal signs Thyroid: Thyroid normal Carotids: normal carotid upstroke and bounding pulses Chest: Chest palpation & inspection: normal inspection of the chest Resp: Effort & Inspection: normal respiratory effort Auscultation: clear to auscultation bilaterally Cardio: Rate: regular rate Rhythm: regular rhythm Heart sounds: S1 normal heart sound present and S2 normal heart sound present Peripheral pulses: Peripheral pulses 2+ throughout GI: Inspection: Yes normal to inspection Percussion: Yes normal to p ercussion Auscultation: normal bowel sounds Rectal Exam - Male: Yes deferred Back/Spine/Pelvis: Cervical Spine: normal cervical lordosis and cervical ROM normal Thoracic/Lumbar Spine: thoracic and lumbar spine normal to inspection Skin: General skin exam: no rashes or lesions noted Neuro: General: oriented to person, oriented to place, oriented to time, gait normal, tone normal, moves all extremities, Normal light touch and pain sensation, no meningeal signs, no focal motor deficits, CN's II-XI intact bilaterally, normal sensation to monofilament and deep tendon reflexes 2+ bilaterally Cranial nerves: Yes CN's II-XII intact bilaterally, Yes Equal, ro und and reactive pupils present, Yes Bilaterally intact EOM present, Yes Nystagmus not present, Yes Normal facial strength present, Yes Midline tongue present, Yes Normal gag reflex present, Yes Symmetric palate elevation present, Yes Normal hearing present and Yes Ability to bilaterally rotate head present Cognition (Neuro): normal cognition Speech: Other speech findings present (Neuro) Gait exam (Neuro): Normal gait present Motor exam (neuro): 5/5 motor strength present throughout, Pronator motor function not present, no tremor noted, no asterixis, Motor fasciculations not present, Normal motor muscle tone present throughout and Motor abnormalities not present Sensory Exam: Bilaterally intact graphesthesia Deep tendon reflexes (DTR's): Right triceps reflex intensity grade: 2+, Left triceps reflex intensity grade: 2+, Rt Biceps (C5, C6): 2+, Left biceps reflex intensity grade: 2+, Right brachioradialis reflex intensity grade: 2+, Left brachioradialis reflex intensity grade: 2+, Right patellar reflex intensity grade: 2+, Left patellar reflex intensity grade: 2+, Right ankle reflex intensity grade: 2+ and Left ankle reflex intensity grade: 2+ Plantar Reflex Responses: downgoing: right, left and bilateral Coordination: [id number] test normal, [id number] test normal, tandem gait normal and Romberg test negative Pupils: Normal pupillary reactivity/response: bilateral Extrem: General: Yes normal to inspection, Yes normal exam except as noted and Yes no pedal edema Psych: Appearance: grossly normal Mental Status: mental status grossly normal Speech and movement: Normal speech and movement present and Clear speech present Affect: normal affect Attitude: cooperative Thought process: Normal thought process present Objective Data Labs CBC & Chem 7: 10/02/20 05:50 10/02/20 05:50 Progress Note: A&P Assessment and plan (1) CVA (cerebral vascular accident): Problem details: Possible small deep left hemisphere stroke Status: Acute Assessment and Plan: It is unclear if he truly had a seizure or TIA. His right upper extremity weakness is old. There is a possibility that he could have had a seizure although he describes that he was thrashing around. I think it is appropriate to have an outpatient EEG. Fall Risk Details Current Medications: Current Medications Generic Name Dose Route Start Last Admin Trade Name Freq PRN Reason Stop Dose Admin Acetaminophen 650 mg 10/02/20 00:35 Acetaminophen 325 Mg Tablet PO Q6H PRN Pain, Mild (Pain Scale 1-3) Amlodipine Besylate 10 mg 10/02/20 09:00 10/04/20 09:04 Amlodipine Besylate 10 Mg Tablet PO 10 mg DAILY YAO Administration Protocol Aspirin 81 mg 10/02/20 09:00 10/04/20 09:04 Aspirin 81 Mg Tab.Chew PO 81 mg DAILY YAO Administration Atorvastatin Calcium 80 mg 10/02/20 21:00 10/03/20 21:28 Atorvastatin Calcium 80 Mg Tablet PO 80 mg BEDTIME YAO Administration Docusate Sodium 100 mg 10/02/20 00:35 Docusate Sodium 100 Mg Capsule PO DAILY PRN Constipation Enoxaparin Sodium 40 mg 10/02/20 06:00 10/04/20 05:02 Enoxaparin Sodium 40 Mg/0.4 Ml Syringe SUBCUT 40 mg Q24H YAO Administration Losartan Potassium 25 mg 10/02/20 09:00 10/04/20 09:04 Losartan Potassium 25 Mg Tablet PO 25 mg DAILY YAO Administration Protocol Nicotine 21 mg 10/02/20 12:40 10/04/20 09:07 Nicotine 21 Mg Patch.Td24 TRANSDERMA Not Given DAILY YAO Ondansetron HCl 4 mg 10/02/20 00:35 Ondansetron Hcl 4 Mg/2 Ml Vial IVPUSH Q8H PRN Nausea and Vomiting Sodium Chloride 3 ml 10/02/20 00:35 10/04/20 09:04 0.9 % Sodium Chloride Flush 3 Ml Syringe IVFLUSH 3 ml QSHIFT YAO Administration Time Spent With Patient Time: Total time spent is greater than 50% in coordination of care (as documented) at patient's floor/unit and/or counseling patient: Time with patient: 15 - 24 minutes
[2020-10-04 11:52] VITALS: BP 131/78; PULSE 59; RESP 20; TEMP 36.7; O2SAT 96
--- NOTE | 2020-10-04 14:00 | CA_ITS ---
Transthoracic Echocardiogram Patient (Last, First, Middle): Wale Delgado, Gender: Male Date of : 1955 Age: 65 Procedure Date: 10/04/2020 Procedure Type: Transthoracic Echocardiogram Location: [facility] [place] Height: 162.56 cm Weight: 79.83 kg BSA: 1.85 m2 Heart Rate: bpm BP: 131 / 58 mmHg [employer]orer [employer] Machine: Referring MD: Lorenzo Giraldo MD Symptoms: cva Conclusions: - 1. Mildly reduced LV systolic function with large area of wall motion abnormality in RCA/circumflex distribution with impaired relaxation filling pattern 2. Mildly dilated left atrium 3. [id number] mitral regurgitation 4. Normal RV systolic pressure 5. No pericardial effusion Findings Left Ventricle Normal left ventricular cavity size. There is mildly increased left ventricular wall thickness. The left ventricular systolic function is mildly decreased. The visually estimated ejection fraction is between 45-50%. Spectral Doppler is indicative of an impaired relaxation filling pattern. E/E prime ratio is between 8 and 15 consistent with indeterminate filling pressures. Wall Motion Rest Echo Findings The inferolateral wall, the mid inferior, basal anterolateral, and basal inferoseptal segments are akinetic. 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 All other scored wall segments showed normal motion. Right Ventricle Normal right ventricular cavity size and systolic function. There is an ICD wire seen in the right ventricle. Atria The left atrium is mildly dilated. Interatrial shunt cannot be excluded. The right atrium is normal in size. Aortic Valve There is mild calcification of the aortic valve. There is no aortic valve stenosis. There is no aortic valve regurgitation. Mitral Valve There is mild anterior and posterior mitral leaflet thickening. The posterior mitral leaflet has restricted mobility. There is mild to moderate mitral valve regurgitation. The mitral regurgitation jet is directed posteriorly. There is no mitral valve stenosis. Tricuspid Valve Normal tricuspid valve structure. There is mild tricuspid valve regurgitation. The right ventricular systolic pressure is normal. The right ventricular systolic pressure is 27 mmHg. There is no evidence of pulmonary hypertension. Great Vessels All visible segments of the aorta are normal in size. The pulmonary artery was not well visualized. Venous The inferior vena cava is normal in size and collapses greater than 50% with inspiration. Pericardium/Pleural There is no evidence of pericardial effusion. Prior Study Comparison No prior study available for comparison. Measurements 2D Linear Measurements RVIDd: 3.52 RVIDd Index: 1.90 IVSd: 1.27 0.6-0.9/0.6-1.0 cm LVIDd: 6.47 3.9-5.3/4.2-5.9 cm LVIDd Index: 3.50 2.4-3.2/2.2-3.1 cm/m2 LVIDs: 4.63 2.0-3.6 cm LVPWd: 1.33 0.7-1.1 cm Ao Root: 3.30 2.1-3.5 cm LA Diam: 4.90 2.7-3.8/3.0-4.0 cm LAIDs Index: 2.65 1.5-2.3 cm/m2 LV Mass: 494.31 67-162/88-224 g LV Mass Index: 267.20 43-95/49-115 g/m2 LVOT Diam: 2.20 3.0+(-)1.3 cm 2D Systolic Function EF 4C: 50.60 >55% EF 2C: 50.00 >55% EF BiP: 49.40 >55% Mitral Valve MV Pk E: 0.77 MV PK A: 0.77 MV Decel Time: 209.00 E/A: 1.00 E'Lateral: 12.80 E'Medial: 6.96 E/E' Med: 11.00 E/E' Lat: 6.00 MR Vol - PW Dopp: 32.16 MR VTI: 2.01 MR ERO: 16.00 MR Alias Darrion: 0.57 MR RAD: 0.50 Aortic Valve AoV Pk Darrion: 1.48 AoV Mn Darrion: 0.91 AoV VTI: 0.28 AoV Pk Grad: 9.00 Aov Mn Grad: 4.00 ISHAAN Cont.VTI: 3.62 LVOT LVOT Pk Darrion: 1.20 LVOT Mn Darrion: 0.83 LVOT VTI: 0.27 LVOT Pk Grad: 6.00 LVOT Mn Grad: 3.00 LVOT Diam: 2.20 LVOT Area: 3.80 Diastolic Function MV Pk E: 0.77 MV Pk A: 0.77 E/A: 1.00 E'Medial: 6.96 E/E' Med: 11.00 E' Laterial: 12.80 E/E' Lat: 6.00 Tricuspid Valve TR Pk Darrion: 2.43 TR Pk Grad: 24.00 RA Press: 3.00 RVSP: 27.00 Great Vessels Aorta Ao Root-2D: 3.30 2.0-3.7 cm Ao Asc: 4.20 2.1-3.4 cm Ao Arch: 3.30 Updated in Other Vendor System with Status of Final Rangel King MD electronically signed on 10/04/2020 5:07:58 PM with status of Final
== END 2020-10-04 14:55 | disposition home or self-care (01) | DRG 65 ==
LOC: HO.ED 22:43 → HO.IMC 23:42
PROVIDERS: Admitting Provider Internal Medicine; Emergency Provider Emergency Medicine; PCP Internal Medicine Sports Medicine; Visit Provider Internal Medicine
DX: I63.9 Cerebral infarction, unspecified (principal); I50.22 Chronic systolic (congestive) heart failure; I11.0 Hypertensive heart disease with heart failure; I25.10 Atherosclerotic heart disease of native coronary artery without angina pectoris; R29.710 NIHSS score 10; R47.1 Dysarthria and anarthria; F10.20 Alcohol dependence, uncomplicated; F17.210 Nicotine dependence, cigarettes, uncomplicated; Z71.6 Tobacco abuse counseling; Z20.828 Contact with and (suspected) exposure to other viral communicable diseases; Z79.1 Long term (current) use of non-steroidal anti-inflammatories (NSAID); Z95.810 Presence of automatic (implantable) cardiac defibrillator; Z79.899 Other long term (current) drug therapy
CPT/HCPCS: 36415; 70450; 70496; 70498; 70551; 71045; 80048; 80061; 80076; 80307; 80320; 81003; 82947; 83036; 84484; 85025; 85610; 92507; 92610; 93005; 93306; 96365; 96366; 96375; 97161; 97165; 99223; 99232; 99285; J1650; J2060; J3411; J3475; Q9967; U0003

== ENCOUNTER 2023-04-12 14:47 | Observation (INO) | payer BC, MEDICARE, SELFPAY ==
--- NOTE | ~2023-04-12 | XR_ITS ---
EXAMINATION: XR FOOT, LEFT CLINICAL INFORMATION: Left foot pain and swelling. COMPARISON: None available. TECHNIQUE: AP, lateral, and oblique views of the left foot. FINDINGS: No acute fracture or dislocation. The joint spaces are unremarkable. The tarsal bones are normally aligned. There is mild soft tissue swelling. XR/XR foot LT min 3V IMPRESSION: Mild soft tissue swelling without acute underlying osseous abnormality.
--- NOTE | ~2023-04-12 | US_ITS ---
EXAMINATION: US VENOUS ULTRASOUND WITH DOPPLER LOWER EXTREMITY, LEFT CLINICAL INFORMATION: Left lower extremity pain and swelling. COMPARISON: None available. TECHNIQUE: Ultrasound of the deep veins is performed from the hip to the calf with compression sonography and color and pulse Doppler assessment. Spectral analysis with color-flow imaging is performed. FINDINGS: There is normal venous compression and respiratory variation and augmented flow. The visualized common femoral vein, superficial femoral vein, profunda femoral vein, popliteal vein, and the trifurcation region shows no evidence of deep venous thrombosis. No left popliteal cyst. The subcutaneous soft tissues are unremarkable. US/US venous duplex LE LT IMPRESSION: No evidence for deep venous thrombosis in the visualized veins of the left lower extremity.
--- NOTE | ~2023-04-12 | US_ITS ---
EXAMINATION: US ARTERIAL DUPLEX LOWER EXTREMITY LEFT CLINICAL INFORMATION: Pain and swelling in the third toe. COMPARISON: None TECHNIQUE: Multiple 2-D grayscale and duplex Doppler ultrasound images of the arteries of the left lower extremity were obtained. FINDINGS: Mild echogenic atherosclerotic plaque is seen. Triphasic waveforms are seen. Peak systolic arterial velocities are as follows in centimeters per second: Common femoral: 117 Profunda femoral: 125 Proximal superficial femoral: 113 Mid superficial femoral: 124 Distal superficial femoral: 83 Popliteal: 129 Posterior tibial: 127 Peroneal: 66 US/US arterial duplex LE IMPRESSION: No hemodynamically significant arterial stenosis in the visualized arteries of the left lower extremity.
[2023-04-12 14:53] VITALS: BP 161/91; PULSE 64; RESP 18; TEMP 36.1; O2SAT 98; BMI 30.6
--- NOTE | 2023-04-12 14:53 | ED_ITS ---
HPI - General Adult General Chief complaint: Skin/Abscess/Foreign Body Stated complaint: ? Cellulitis L Foot Time Seen by Provider: 04/12/23 15:38 Source: patient, RN notes reviewed and old records reviewed Mode of arrival: ambulatory History of Present Illness HPI narrative: 68-year-old male with a past medical history of CVA, HLD, HTN, presenting to the ED complaining of increasing erythema, pain, and swelling to left 3rd toe x1 week. Reports could be ?insect bite as put foot in shoe which has been sitting for awhile. Denies known injury/trauma or fall, fever/chills, numbness/tingling, drainage from area, SOB Onset (ago): week(s) Related Data Home Medications Medication Instructions Recorded Confirmed amlodipine 10 mg tablet 10 mg PO DAILY 10/01/20 10/01/20 atorvastatin 20 mg tablet 20 mg PO BEDTIME 10/01/20 10/01/20 losartan 25 mg tablet 25 mg PO DAILY 10/01/20 10/01/20 naproxen sodium 220 mg capsule 220 mg PO BID PRN Pain 10/01/20 10/01/20 (Aleve) Previous Rx's Medication Instructions Recorded aspirin 81 mg chewable tablet 81 mg PO DAILY #30 tabs 10/04/20 Allergies Allergy/AdvReac Type Severity Reaction Status Date / Time No Known Allergies Allergy Verified 10/01/20 20:33 Review of Systems Review of Systems: Constitutional: No Fever, No Chills, No Fatigue, No Malaise ENT/Mouth: No Ear Pain, No Nasal Congestion, No sore throat, No Rhinorrhea, No Swallowing Difficulty Eyes: No Eye Pain, No Swelling, No Redness Cardiovascular: No Chest Pain, No SOB, No Edema, No Palpitations Respiratory: No Cough, No Sputum, No Dyspnea Gastrointestinal: No Nausea, No Vomiting, No Diarrhea, No Constipation, No Abdominal pain Musculoskeletal: +joint pain, No Myalgias, + Joint Swelling Skin: + Skin Lesions, No rash Neuro: No Weakness, No Dizziness, No Headache Yes all other systems are reviewed and are negative Constitutional: Constitutional: Reports as per HPI [facility] Past Medical History Attestation statement: The following information was validated with the patient. Source: old records reviewed Medical History CVA (cerebral vascular accident) High cholesterol HTN (hypertension) Left ventricular aneurysm Tumor Social History Social History Household Members: Family Housing: Unknown / Unable to assess Do you presently have visiting nurse or other home services: No (unknown) Alcohol intake: current Alcohol intake frequency: 0-2 drinks per day Alcohol type: hard liquor Smoked in Last 30 Days: Yes Use of substances other than those prescribed or required for medical reasons: No Advance Directives: No Advance Directives Information Provided: Yes service: No Physical Exam ED Vital Signs: Vital Signs - 24 hr 04/12/23 14:53 04/12/23 16:09 Temperature 97 F Pulse Rate 64 65 Respiratory Rate 18 18 Blood Pressure 161/91 H 165/73 H Pulse Oximetry 98 95 Oxygen Delivery Method Room Air Room Air BMI result Body Mass Index 30.6 Const General: cooperative, healthy appearing and no acute distress Orientation/consciousness: patient oriented x3 Limitations: no limitations HENMT Head: Yes normal to inspection and Yes atraumatic Ears: hearing grossly normal bilaterally General nose exam: Normal external nose present Face and sinus: Yes normal facial exam Eyes General: appearance normal, both eyes and all related structures EOM: EOMs intact bilaterally Neck Neck: Yes normal visual inspection and Yes no meningeal signs Resp Effort & Inspection: normal respiratory effort and no respiratory distress Auscultation: clear to auscultation bilaterally, no crackles, no rales and no wheezes Cardio Rate: regular rate Heart sounds: S1 normal heart sound present and S2 normal heart sound present Peripheral pulses: Peripheral pulses 2+ throughout GI Inspection: Yes normal to inspection Palpation (GI): Soft to palpation and nontender Skin Rashes: no rashes Wounds: no wounds Neuro General: patient oriented x3, tone normal and no meningeal signs Gait exam (Neuro): Normal gait present Extrem Other: Please refer to image above. Left 3rd toe with noted swelling, erythema, and warmth extending proximally. NV intact. No crepitus. No appreciable bite shadi 2+ LLE pitting edema General: Yes edema Course Course Course Narrative: RME performed by Radha Combs PA-C. Patient is a 68 year old assigned male at presenting to the emergency department with left 3rd toe swelling, redness, and pain. Labs and imaging ordered. Patient placed back in the waiting room pending room availability and results. -1620--no leukocytosis, ESR mildly elevated. CRP mildly elevated XR foot LT min 3V IMPRESSION: Mild soft tissue swelling without acute underlying osseous abnormality. US venous duplex LE LT IMPRESSION: No evidence for deep venous thrombosis in the visualized veins of the left lower extremity. US arterial duplex LE LT IMPRESSION: No hemodynamically significant arterial stenosis in the visualized arteries of the left lower extremity. -1630--patient admitted for further management for suspected osteomyelitis Medications Administered Discontinued Medications Generic Name Dose Route Start Last Admin Trade Name Freq PRN Reason Stop Dose Admin Piperacillin Sod/Tazobactam 50 mls @ 100 mls/hr 04/12/23 15:43 04/12/23 16:16 Sod 3.375 gm/ Sodium Chloride IV 04/12/23 16:12 100 mls/hr ONCE ONE Administration Medical Decision Making Medical Decision Making [facility] Narrative: 68-year-old male with a past medical history of CVA, HLD, HTN, presenting to the ED complaining of increasing erythema, pain, and swelling to left 3rd toe x1 week. On exam vital signs stable, NAD, nontoxic appearing, physical exam as noted above, please refer to image. Left 3rd toe with noted swelling, erythema, warmth, and tenderness. Neurovascularly intact. No crepitus. No bite mar k/necrosis. Concern for cellulitis vs osteomyelitis vs insect bite vs ?Gout vs DVT or vascular compromise. Lower suspicion for septic joint/arthritis at this time Plan: Labs, lactic/blood cultures, XR, arterial and venous ultrasound, empiric IV antibiotics Please refer to course for remaining clinical decision making, interpretation of labs/imaging results, and discussions with consultants and/or family members. Differential Diagnosis Differential Diagnoses: The differential diagnosis associated with the presentation includes As above Admission/Observation Consideration of admission/observation: Escalation of care including admission/observation considered Lab Data [facility] Lab Attestation statement: I reviewed the patient's lab results. 04/12/23 15:03 04/12/23 15:03 Labs: Lab Results 04/12/23 04/12/23 04/12/23 Range/Units 15:03 15:03 15:03 WBC 8.4 (4.8-10.8) X10*3/uL RBC 4.04 L (4.60-5.80) X10*6/uL Hgb 13.1 L (14.0-18.0) g/dl Hct 38.9 L (42.0-52.0) % MCV 96.3 (80.0-98.0) fL MCH 32.4 (27.0-33.0) pg MCHC 33.7 (31.0-36.0) g/dl RDW 13.7 (11.0-16.0) % Plt Count 288 (160-400) X10*3/uL MPV 9.8 (9.4-12.4) fL Immature Gran % (Auto) 0.2 (0.0-0.4) % Neut % (Auto) 65.4 (45-73) % Lymph % (Auto) 22.4 (20-40) % [place] % (Auto) 9.1 (2-11) % Eos % (Auto) 1.8 (0-4) % Baso % (Auto) 1.1 (0-2) % Lymph # (Auto) 1.9 (1.2-4.9) X10*3/uL [place] # (Auto) 0.8 (0.1-1.2) X10*3/uL Eos # (Auto) 0.2 (0.0-0.4) X10*3/uL Baso # (Auto) 0.1 (0.0-0.2) X10*3/uL Abs Immat Gran (auto) 0.02 (0.00-0.03) X10*3/uL Absolute Neuts (auto) 5.5 (2.0-8.3) x10*3/uL Absolute Nucleated RBC 0.000 (0.0-0.012) X10*3/uL Nucleated RBC % (auto) 0.0 (0.0-0.2) /100WBC ESR 19 H (0-15) MM/HR Sodium 140 (135-145) mmol/L Potassium 3.5 (3.3-5.1) mmol/L Chloride 103 (96-108) mmol/L Carbon Dioxide 25 (22-29) mmol/L Anion Gap 16 (12-20) BUN 8 L (9-16) mg/dL Creatinine 0.83 (0.5-1.4) mg/dL Estim Creat Clear Calc 79.4 Estimated GFR > 60 Random Glucose 129 H (60-115) mg/dL Estimat Average Glucose mg/dL Hemoglobin A1c % % Lactic Acid (0.5-2.0) mmol/L Calcium 9.7 D (8.4-10.2) mg/dL Magnesium 2.2 (1.6-2.6) mg/dL Total Bilirubin 0.4 (0.0-1.0) mg/dL AST 22 (5-37) U/L ALT 15 (0-40) U/L Alkaline Phosphatase 96 (39-117) U/L C-Reactive Protein 1.38 H (< or = 0.50) mg/dL Total Protein 7.4 (6.5-8.0) g/dL Albumin 4.3 (3.5-5.0) g/dL 04/12/23 04/12/23 Range/Units 15:03 15:03 WBC (4.8-10.8) X10*3/uL RBC (4.60-5.80) X10*6/uL Hgb (14.0-18.0) g/dl Hct (42.0-52.0) % MCV (80.0-98.0) fL MCH (27.0-33.0) pg MCHC (31.0-36.0) g/dl RDW (11.0-16.0) % Plt Count (160-400) X10*3/uL MPV (9.4-12.4) fL Immature Gran % (Auto) (0.0-0.4) % Neut % (Auto) (45-73) % Lymph % (Auto) (20-40) % [place] % (Auto) (2-11) % Eos % (Auto) (0-4) % Baso % (Auto) (0-2) % Lymph # (Auto) (1.2-4.9) X10*3/uL [place] # (Auto) (0.1-1.2) X10*3/uL Eos # (Auto) (0.0-0.4) X10*3/uL Baso # (Auto) (0.0-0.2) X10*3/uL Abs Immat Gran (auto) (0.00-0.03) X10*3/uL Absolute Neuts (auto) (2.0-8.3) x10*3/uL Absolute Nucleated RBC (0.0-0.012) X10*3/uL Nucleated RBC % (auto) (0.0-0.2) /100WBC ESR (0-15) MM/HR Sodium (135-145) mmol/L Potassium (3.3-5.1) mmol/L Chloride (96-108) mmol/L Carbon Dioxide (22-29) mmol/L Anion Gap (12-20) BUN (9-16) mg/dL Creatinine (0.5-1.4) mg/dL Estim Creat Clear Calc Estimated GFR Random Glucose (60-115) mg/dL Estimat Average Glucose 108 mg/dL Hemoglobin A1c % 5.4 % Lactic Acid 1.7 (0.5-2.0) mmol/L Calcium (8.4-10.2) mg/dL Magnesium (1.6-2.6) mg/dL Total Bilirubin (0.0-1.0) mg/dL AST (5-37) U/L ALT (0-40) U/L Alkaline Phosphatase (39-117) U/L C-Reactive Protein (< or = 0.50) mg/dL Total Protein (6.5-8.0) g/dL Albumin (3.5-5.0) g/dL Radiology Impression Discussion of test interpretation with radiology: I have reviewed the radiologist's reading. External Record Review External record reviewed: Inpatient record, Office record, Outpatient record, Prior outpatient labs, Prior outpatient radiology, Primary care record and [facility] ED record Tests considered The following testing was considered but not selected: As above Prescription Management I considered prescription management with: Pain Medication and Antibiotic Chronic Conditions Patient?s care impacted by: Other Critical Care Time Critical Care Time Critical Care Time: Yes Total Critical Care Time: 45 Attestation: I have personally provided critical care time exclusive of time spent on separately billable procedures. Time includes review of lab data, radiology results, discussion with consultants, and monitoring for potential decompensation. Intervention performed as documented. Discharge Plan Discharge Clinical Impression: Cellulitis Patient Disposition: Admitted As Inpatient
[2023-04-12 15:13] LABS: MANUAL DIFF FLAG NO
[2023-04-12 15:14] LABS: Basophils Absolute Auto 0.1 X10*3/uL (0.0-0.2); Basophils Percent Auto 1.1 % (0-2); Eosinophils Absolute Auto 0.2 X10*3/uL (0.0-0.4); Eosinophils Percent Auto 1.8 % (0-4); Hematocrit 38.9 % (42.0-52.0); Hemoglobin 13.1 g/dl (14.0-18.0); Imm Gran Abs Auto 0.02 X10*3/uL (0.00-0.03); Imm Gran Pct Auto 0.2 % (0.0-0.4); Lymphocytes Absolute Auto 1.9 X10*3/uL (1.2-4.9); Lymphocytes Percent Auto 22.4 % (20-40); Mean Corpuscular HGB Conc 33.7 g/dl (31.0-36.0); Mean Corpuscular Hemoglobin 32.4 pg (27.0-33.0); Mean Corpuscular Volume 96.3 fL (80.0-98.0); Mean Platelet Volume 9.8 fL (9.4-12.4); Monocytes Absolute Auto 0.8 X10*3/uL (0.1-1.2); Monocytes Percent Auto 9.1 % (2-11); Neutrophils Absolute Auto 5.5 x10*3/uL (2.0-8.3); Neutrophils Percent Auto 65.4 % (45-73); Platelet Count 288 X10*3/uL (160-400); Red Blood Count 4.04 X10*6/uL (4.60-5.80); Red Cell Distribution Width 13.7 % (11.0-16.0); White Blood Count 8.4 X10*3/uL (4.8-10.8)
[2023-04-12 15:24] LABS: Lactic Acid 1.7 mmol/L (0.5-2.0)
[2023-04-12 15:33] LABS: Alanine Aminotransferase 15 U/L (0-40); Albumin Level 4.3 g/dL (3.5-5.0); Alkaline Phosphatase 96 U/L (39-117); Anion Gap 16 (12-20); Aspartate Amino Transferase 22 U/L (5-37); Bilirubin Total 0.4 mg/dL (0.0-1.0); Blood Urea Nitrogen 8 mg/dL (9-16); C Reactive Protein 1.38 mg/dL (< or = 0.50); Calcium 9.7 mg/dL (8.4-10.2); Carbon Dioxide 25 mmol/L (22-29); Chloride 103 mmol/L (96-108); Creatinine Clr Calc Pharmacy 79.4; Estimated Glomerular Filt Rate > 60; Glucose Random 129 mg/dL (60-115); Magnesium 2.2 mg/dL (1.6-2.6); Potassium 3.5 mmol/L (3.3-5.1); Sodium 140 mmol/L (135-145); Total Protein 7.4 g/dL (6.5-8.0)
[2023-04-12 15:53] LABS: Erythrocyte Sedimentation Rate 19 MM/HR (0-15)
[2023-04-12 16:09] VITALS: BP 165/73; PULSE 65; RESP 18; O2SAT 95
--- OUTSIDE RECORDS SUMMARY | 2023-04-12 16:13 | XMS_ITS | Continuity of Care Document ---
Author Name Unknown Organization [facility] Address [address] [place] [phone]- Care Team Providers Care Tester Armature Or Fields Name Role Phone South Baptiste MD Primary Care Physician Encounter [facility] Date(s): 07/29/20 - 11/26/20 [facility] [address] [place] [id number] Attending Physician: Oziel Harmon MD Admitting Physician: Oziel Harmon MD Referring Physician: South Baptiste MD Allergies, Adverse Reactions, Alerts Substance Reaction Severity Status lisinopril Acute edema Active Immunizations Given and Recorded Vaccine Date Status Refusal Reason tetanus/diphtheria/pertussis, acel(Tdap) 04/01/19 Given Not Given Vaccine Date Status Refusal Reason influenza virus vaccine, inactivated 11/18/16 Not Given Permanently Refused influenza virus vaccine, inactivated 11/11/16 Not Given Patient Refuses pneumococcal 23-valent vaccine 11/18/16 Not Given Patient Refuses pneumococcal 23-valent vaccine 11/11/16 Not Given Patient Refuses Medications amiodarone 400 mg oral tablet 1 tablet = 400 mg, By Mouth, Daily, # 30 tablet, 0 Refills, Maintenance, 12/20/16 10:48:14, Tablet Start Date: 12/20/16 Stop Date: 01/19/17 Status: Ordered amLODIPine 10 mg oral tablet 10 mg, 1, tablet, By Mouth, Daily, Refills 0, Maintenance, 04/08/19 22:16:56 EDT Start Date: 04/08/19 Status: Ordered aspirin 81 mg oral delayed release tablet 81 mg, By Mouth, Daily, # 30 tablet, Refills 0, Tot. Refills 0, Maintenance, 04/03/16 15:29:06, Route to Pharmacy Electronically, [id number], [place] [address] Start Date: 04/03/16 Stop Date: 05/03/16 Status: Ordered atorvastatin 10 mg oral tablet 1 tablet = 10 mg, By Mouth, Daily, 0 Refills, Maintenance Start Date: 04/08/19 Status: Ordered atorvastatin 80 mg oral tablet = 80 mg, By Mouth, Daily at bedtime, # 30 tablet, 1 Refills, Maintenance, Tablet, Route to PharmacyElectronically, [id number], [facility] Start Date: 12/21/16 Stop Date: 02/19/17 Status: Ordered bacitracin zinc 500 units/g topical ointment 1 applicator, Topically, 2 times a day, 0 Refills, Maintenance, 04/08/19 22:18:42 EDT Start Date: 04/08/19 Status: Ordered Colace sodium 100 mg oral capsule 100 mg, 1, capsule, By Mouth, 2 times a day, over the counter; hold if +diarrhea, # 60 capsule, Refills 0, Tot. Refills 0, Maintenance, 11/21/16 13:36:48, Route to Pharmacy Electronically, [id number], [place] [address] Start Date: 11/21/16 Stop Date: 12/21/16 Status: Ordered folic acid 1 mg oral tablet 1 mg, By Mouth, Daily, # 30 tablet, Refills 0, Tot. Refills 0, Maintenance, 11/21/16 13:37:11, Route to Pharmacy Electronically, [id number], [place] [address] Start Date: 11/21/16 Stop Date: 12/21/16 Status: Ordered furosemide 40 mg oral tablet 40 mg, 1, tablet, By Mouth, Daily, # 30 tablet, Refills 1, Tot. Refills 1, Maintenance, 12/21/16 10:21:13, Route to Pharmacy Electronically, [id number], [facility] Start Date: 12/21/16 Stop Date: 02/19/17 Status: Ordered lisinopril 20 mg oral tablet 20 mg, 1, tablet, By Mouth, Daily, Refills 0, Maintenance, 04/08/19 22:17:30 EDT Start Date: 04/08/19 Status: Ordered metoprolol 25 mg oral tablet 12.5 mg, By Mouth, 2 times a day, # 30 tablet, Refills 0, Tot. Refills 0, Maintenance, 11/21/16 13:36:07, Route to Pharmacy Electronically, [id number], [facility] 3 Start Date: 11/21/16 Stop Date: 12/21/16 Status: Ordered multivitamin Multiple Vitamins oral tablet 1 tablet, By Mouth, Daily, # 30 tablet, 0 Refills, Maintenance, 11/21/16 13:37:45, Tablet, 1 tabletBy Mouth Daily,x30 days Start Date: 11/21/16 Stop Date: 12/21/16 Status: Ordered Oxycodone = 5 mg, By Mouth, Every 4 hours, 0 Refills, Maintenance, 04/08/19 22:17:45 EDT Start Date: 04/08/19 Status: Ordered pantoprazole 20 mg oral delayed release tablet 20 mg, By Mouth, Daily, ok to substitute with Prilosec or Pepcid, # 30 tablet, Refills 0, Tot. Refills 0, Maintenance, 11/21/16 13:38:18, Route to Pharmacy Electronically, [id number], [facility] 3 Start Date: 11/21/16 Stop Date: 12/21/16 Status: Ordered potassium chloride 20 mEq oral tablet, extended release 1 tablet = 20 mEq, By Mouth, 2 times a day, # 10 tablet, 0 Refills, Maintenance, 05/09/19 0:33:44 EDT, ER Tablet Start Date: 05/09/19 Stop Date: 05/14/19 Status: Ordered Remove Patch 1 each, Topically, Daily, 0 Refills, Maintenance, Patch Start Date: 11/21/16 Status: Ordered warfarin 1 mg oral tablet See Instructions, Take up to 2 tablets daily as directed by the coumadin clinic, # 60 tablet, 3 Refills, Maintenance, 01/14/17 8:35:00, Tablet Start Date: 01/14/17 Status: Ordered Problem List Condition Effective Dates Status Health Status Inform ant Left ventricular aneurysm(Confirmed) Active Social History Social History Type Response Smoking Status 10 or more cigarette s (1/2 pack or more)/day in last 30 days entered on: 05/08/19 Sex
--- OUTSIDE RECORDS SUMMARY | 2023-04-12 16:13 | XMS_ITS | Continuity of Care Document ---
Author Name Unknown Organization [facility] Address [address] [place] [address]- Care Team Providers Care Turn Out Worker Name Role Phone South Baptiste MD Primary Care Physician Encounter [facility] Date(s): 11/27/19 - 03/26/20 [facility] [address] [place] [id number] [facility] Attending Physician: Oziel Harmon MD Admitting Physician: [...] Maintenance, 04/03/16 15:29:06, Route to Pharmacy Electronically, [id number], [facility] 3 Start Date: 04/03/16 Stop Date: 05/03/16 Status: Ordered atorvastatin 10 mg oral tablet 1 tablet = 10 mg, By Mouth, Daily, 0 Refills, Maintenance Start Date: 04/08/19 Status: Ordered atorvastatin 80 mg oral tablet = 80 mg, By Mouth, Daily at bedtime, # 30 tablet, 1 Refills, Maintenance, Tablet, Route to PharmacyElectronically, [id number], [facility] Start Date: [...] Maintenance, 11/21/16 13:36:48, Route to Pharmacy Electronically, [id number], [facility] 3 Start Date: 11/21/16 Stop Date: 12/21/16 Status: Ordered folic acid 1 mg oral tablet 1 mg, By Mouth, Daily, # 30 tablet, Refills 0, Tot. Refills 0, Maintenance, 11/21/16 13:37:11, Route to Pharmacy Electronically, [id number], [facility] 3 Start Date: 11/21/16 Stop Date: 12/21/16 Status: Ordered furosemide 40 mg oral tablet 40 mg, 1, tablet, By Mouth, Daily, # 30 tablet, Refills 1, Tot. Refills 1, Maintenance, 12/21/16 10:21:13, Route to Pharmacy Electronically, [id number], [facility] Start Date: [...] Maintenance, 11/21/16 13:36:07, Route to Pharmacy Electronically, [id number], [facility] 3 Start Date: 11/21/16 Stop Date: 12/21/16 [...] Maintenance, 11/21/16 13:38:18, Route to Pharmacy Electronically, [id number], [facility] 3 Start Date: 11/21/16 Stop Date: 12/21/16 [...]
--- OUTSIDE RECORDS SUMMARY | 2023-04-12 16:13 | XMS_ITS | Continuity of Care Document ---
Author Name Unknown Organization [facility] Address [address] [place] [address]- Care Team Providers Care Boat Outboard Engine Mechanic Name Role Phone South Baptiste MD Primary Care Physician [place] [facility]21 [facility] [address] [place] [id number] Attending Physician: Oziel Harmon MD Admitting Physician: [...] Maintenance, 04/03/16 15:29:06, Route to Pharmacy Electronically, [id number], [place] [address] Start Date: 04/03/16 Stop Date: 05/03/16 Status: Ordered atorvastatin 10 mg oral tablet 1 tablet = 10 mg, By Mouth, Daily, 0 Refills, Maintenance Start Date: 04/08/19 Status: Ordered atorvastatin 80 mg oral tablet = 80 mg, By Mouth, Daily at bedtime, # 30 tablet, 1 Refills, Maintenance, Tablet, Route to PharmacyElectronically, [id number], [facility] Start Date: [...] Maintenance, 11/21/16 13:36:48, Route to Pharmacy Electronically, [id number], [place] [address] Start Date: 11/21/16 Stop Date: 12/21/16 Status: Ordered folic acid 1 mg oral tablet 1 mg, By Mouth, Daily, # 30 tablet, Refills 0, Tot. Refills 0, Maintenance, 11/21/16 13:37:11, Route to Pharmacy Electronically, [id number], [place] [address] Start Date: 11/21/16 Stop Date: 12/21/16 Status: Ordered furosemide 40 mg oral tablet 40 mg, 1, tablet, By Mouth, Daily, # 30 tablet, Refills 1, Tot. Refills 1, Maintenance, 12/21/16 10:21:13, Route to Pharmacy Electronically, [id number], [facility] Start Date: [...] Maintenance, 11/21/16 13:36:07, Route to Pharmacy Electronically, [id number], [facility] 3 Start Date: 11/21/16 Stop Date: 12/21/16 [...] Maintenance, 11/21/16 13:38:18, Route to Pharmacy Electronically, [id number], [facility] 3 Start Date: 11/21/16 Stop Date: 12/21/16 [...]
--- OUTSIDE RECORDS SUMMARY | 2023-04-12 16:13 | XMS_ITS | Continuity of Care Document ---
Author Name Unknown Organization [facility] Address [address] [place] [address]- Care Team Providers Care Commercial Singer Name Role Phone South Baptiste MD Primary Care Physician [phone] Encounter [facility] Date(s): 05/23/20 - 08/19/20 [facility] [address] [place] [address] [facility] Attending Physician: Oziel Harmon MD Admitting [...] Maintenance, 04/03/16 15:29:06, Route to Pharmacy Electronically, [id number], [place] [address] Start Date: 04/03/16 Stop Date: 05/03/16 Status: Ordered atorvastatin 10 mg oral tablet 1 tablet = 10 mg, By Mouth, Daily, 0 Refills, Maintenance Start Date: 04/08/19 Status: Ordered atorvastatin 80 mg oral tablet = 80 mg, By Mouth, Daily at bedtime, # 30 tablet, 1 Refills, Maintenance, Tablet, Route to PharmacyElectronically, [id number], [facility] Start Date: [...] Maintenance, 11/21/16 13:36:48, Route to Pharmacy Electronically, [id number], [place] [address] Start Date: 11/21/16 Stop Date: 12/21/16 Status: Ordered folic acid 1 mg oral tablet 1 mg, By Mouth, Daily, # 30 tablet, Refills 0, Tot. Refills 0, Maintenance, 11/21/16 13:37:11, Route to Pharmacy Electronically, [id number], [place] [address] Start Date: 11/21/16 Stop Date: 12/21/16 Status: Ordered furosemide 40 mg oral tablet 40 mg, 1, tablet, By Mouth, Daily, # 30 tablet, Refills 1, Tot. Refills 1, Maintenance, 12/21/16 10:21:13, Route to Pharmacy Electronically, [id number], [facility] Start Date: [...] Maintenance, 11/21/16 13:36:07, Route to Pharmacy Electronically, [id number], [facility] 3 Start Date: 11/21/16 Stop Date: [...] Maintenance, 11/21/16 13:38:18, Route to Pharmacy Electronically, [id number], [facility] 3 Start Date: 11/21/16 Stop Date: [...]
--- OUTSIDE RECORDS SUMMARY | 2023-04-12 16:13 | XMS_ITS | Continuity of Care Document ---
Author Name Unknown Organization [facility] Address [address] [place] [address]- Care Team Providers Care Diving Fisher Name Role Phone South Baptiste MD Primary Care Physician [phone] Encounter [facility] Date(s): 10/03/20 - 11/02/20 [facility] [address] [place] [address] Allergies, Adverse Reactions, Alerts Substance Reaction Severity [...] Maintenance, 04/03/16 15:29:06, Route to Pharmacy Electronically, [id number], [facility] 3 Start Date: 04/03/16 Stop Date: 05/03/16 Status: Ordered atorvastatin 10 mg oral tablet 1 tablet = 10 mg, By Mouth, Daily, 0 Refills, Maintenance Start Date: 04/08/19 Status: Ordered atorvastatin 80 mg oral tablet = 80 mg, By Mouth, Daily at bedtime, # 30 tablet, 1 Refills, Maintenance, Tablet, Route to PharmacyElectronically, [id number], [facility] Start Date: [...] Maintenance, 11/21/16 13:36:48, Route to Pharmacy Electronically, [id number], [facility] 3 Start Date: 11/21/16 Stop Date: 12/21/16 Status: Ordered folic acid 1 mg oral tablet 1 mg, By Mouth, Daily, # 30 tablet, Refills 0, Tot. Refills 0, Maintenance, 11/21/16 13:37:11, Route to Pharmacy Electronically, [id number], [facility] 3 Start Date: 11/21/16 Stop Date: 12/21/16 Status: Ordered furosemide 40 mg oral tablet 40 mg, 1, tablet, By Mouth, Daily, # 30 tablet, Refills 1, Tot. Refills 1, Maintenance, 12/21/16 10:21:13, Route to Pharmacy Electronically, [id number], [facility] Start Date: [...] Maintenance, 11/21/16 13:36:07, Route to Pharmacy Electronically, [id number], [facility] 3 Start Date: 11/21/16 Stop Date: 12/21/16 [...] Maintenance, 11/21/16 13:38:18, Route to Pharmacy Electronically, [id number], [facility] 3 Start Date: 11/21/16 Stop Date: [...]
--- OUTSIDE RECORDS SUMMARY | 2023-04-12 16:13 | XMS_ITS | Continuity of Care Document ---
Author Name Unknown Organization [facility] Address [address] [place] [address]- Care Team Providers Care Fast Food Restaurant Manager Name Role Phone South Baptiste MD Primary Care Physician [phone] Encounter [facility] Date(s): 04/07/20 - 05/07/20 [facility] [address] [place] [address] [facility] Attending Physician: Dangelo Catherine Admitting Physician: AdmDangelo blankenship Referring Physician: AdmtrDangelo Allergies, Adverse Reactions, Alerts Substance Reaction Severity [...] Maintenance, 04/03/16 15:29:06, Route to Pharmacy Electronically, [id number], [facility] 3 Start Date: 04/03/16 Stop Date: 05/03/16 Status: Ordered atorvastatin 10 mg oral tablet 1 tablet = 10 mg, By Mouth, Daily, 0 Refills, Maintenance Start Date: 04/08/19 Status: Ordered atorvastatin 80 mg oral tablet = 80 mg, By Mouth, Daily at bedtime, # 30 tablet, 1 Refills, Maintenance, Tablet, Route to PharmacyElectronically, [id number], [facility] Start Date: [...] Maintenance, 11/21/16 13:36:48, Route to Pharmacy Electronically, [id number], [facility] 3 Start Date: 11/21/16 Stop Date: 12/21/16 Status: Ordered folic acid 1 mg oral tablet 1 mg, By Mouth, Daily, # 30 tablet, Refills 0, Tot. Refills 0, Maintenance, 11/21/16 13:37:11, Route to Pharmacy Electronically, [id number], [facility] 3 Start Date: 11/21/16 Stop Date: 12/21/16 Status: Ordered furosemide 40 mg oral tablet 40 mg, 1, tablet, By Mouth, Daily, # 30 tablet, Refills 1, Tot. Refills 1, Maintenance, 12/21/16 10:21:13, Route to Pharmacy Electronically, [id number], [facility] Start Date: [...] Maintenance, 11/21/16 13:36:07, Route to Pharmacy Electronically, [id number], [facility] 3 Start Date: 11/21/16 Stop Date: 12/21/16 [...] Maintenance, 11/21/16 13:38:18, Route to Pharmacy Electronically, [id number], [facility] 3 Start Date: 11/21/16 Stop Date: [...]
--- OUTSIDE RECORDS SUMMARY | 2023-04-12 16:13 | XMS_ITS | Continuity of Care Document ---
Author Name Unknown Organization [facility] Address [address] [place] [address]- Care Team Providers Care Results Technician Name Role Phone South Baptiste MD Primary Care Physician Encounter [facility] Date(s): 07/14/21 - 08/13/21 [facility] [address] [place] [address]- Attending Physician: Dangelo Catherine Admitting Physician: Dangelo Catherine Referring Physician: Dangelo Catherine Allergies, Adverse Reactions, Alerts Substance Reaction Severity [...] Maintenance, 04/03/16 15:29:06, Route to Pharmacy Electronically, [id number], [facility] 3 Start Date: 04/03/16 Stop Date: 05/03/16 Status: Ordered atorvastatin 10 mg oral tablet 1 tablet = 10 mg, By Mouth, Daily, 0 Refills, Maintenance Start Date: 04/08/19 Status: Ordered atorvastatin 80 mg oral tablet = 80 mg, By Mouth, Daily at bedtime, # 30 tablet, 1 Refills, Maintenance, Tablet, Route to PharmacyElectronically, [id number], [facility] Start Date: [...] Maintenance, 11/21/16 13:36:48, Route to Pharmacy Electronically, [id number], [facility] 3 Start Date: 11/21/16 Stop Date: 12/21/16 Status: Ordered folic acid 1 mg oral tablet 1 mg, By Mouth, Daily, # 30 tablet, Refills 0, Tot. Refills 0, Maintenance, 11/21/16 13:37:11, Route to Pharmacy Electronically, [id number], [facility] 3 Start Date: 11/21/16 Stop Date: 12/21/16 Status: Ordered furosemide 40 mg oral tablet 40 mg, 1, tablet, By Mouth, Daily, # 30 tablet, Refills 1, Tot. Refills 1, Maintenance, 12/21/16 10:21:13, Route to Pharmacy Electronically, [id number], [facility] Start Date: [...] Maintenance, 11/21/16 13:36:07, Route to Pharmacy Electronically, [id number], [facility] 3 Start Date: 11/21/16 Stop Date: 12/21/16 [...] Maintenance, 11/21/16 13:38:18, Route to Pharmacy Electronically, [id number], [facility] 3 Start Date: 11/21/16 Stop Date: [...]
--- OUTSIDE RECORDS SUMMARY | 2023-04-12 16:13 | XMS_ITS | Continuity of Care Document ---
Author Name Unknown Organization [facility] Address [address] [place] [address]- Care Team Providers Care Mechanical Planner Name Role Phone South Baptiste MD Primary Care Physician Encounter [facility] Date(s): 02/06/21 - 04/15/21 [facility] [address] [place] [id number] Attending Physician: Oziel Harmon MD Admitting Physician: [...] Maintenance, 04/03/16 15:29:06, Route to Pharmacy Electronically, [id number], [place] [address] Start Date: 04/03/16 Stop Date: 05/03/16 Status: Ordered atorvastatin 10 mg oral tablet 1 tablet = 10 mg, By Mouth, Daily, 0 Refills, Maintenance Start Date: 04/08/19 Status: Ordered atorvastatin 80 mg oral tablet = 80 mg, By Mouth, Daily at bedtime, # 30 tablet, 1 Refills, Maintenance, Tablet, Route to PharmacyElectronically, [id number], [facility] Start Date: [...] Maintenance, 11/21/16 13:36:48, Route to Pharmacy Electronically, [id number], [place] [address] Start Date: 11/21/16 Stop Date: 12/21/16 Status: Ordered folic acid 1 mg oral tablet 1 mg, By Mouth, Daily, # 30 tablet, Refills 0, Tot. Refills 0, Maintenance, 11/21/16 13:37:11, Route to Pharmacy Electronically, [id number], [place] [address] Start Date: 11/21/16 Stop Date: 12/21/16 Status: Ordered furosemide 40 mg oral tablet 40 mg, 1, tablet, By Mouth, Daily, # 30 tablet, Refills 1, Tot. Refills 1, Maintenance, 12/21/16 10:21:13, Route to Pharmacy Electronically, [id number], [facility] Start Date: [...] Maintenance, 11/21/16 13:36:07, Route to Pharmacy Electronically, [id number], [facility] 3 Start Date: 11/21/16 Stop Date: [...] Maintenance, 11/21/16 13:38:18, Route to Pharmacy Electronically, [id number], [facility] 3 Start Date: 11/21/16 Stop Date: 12/21/16 [...]
--- OUTSIDE RECORDS SUMMARY | 2023-04-12 16:13 | XMS_ITS | Continuity of Care Document ---
Author Name Unknown Organization [facility] Address [address] [place] [address]- Care Team Providers Care Pelletizer Tender Name Role Phone South Baptiste MD Primary Care Physician [phone] Encounter [facility] Date(s): 04/15/21 - 08/13/21 [facility] [address] [place] [address]- Attending Physician: Oziel Harmon MD Admitting Physician: [...] Maintenance, 04/03/16 15:29:06, Route to Pharmacy Electronically, [id number], [facility] 3 Start Date: 04/03/16 Stop Date: 05/03/16 Status: Ordered atorvastatin 10 mg oral tablet 1 tablet = 10 mg, By Mouth, Daily, 0 Refills, Maintenance Start Date: 04/08/19 Status: Ordered atorvastatin 80 mg oral tablet = 80 mg, By Mouth, Daily at bedtime, # 30 tablet, 1 Refills, Maintenance, Tablet, Route to PharmacyElectronically, [id number], [facility] Start Date: [...] Maintenance, 11/21/16 13:36:48, Route to Pharmacy Electronically, [id number], [facility] 3 Start Date: 11/21/16 Stop Date: 12/21/16 Status: Ordered folic acid 1 mg oral tablet 1 mg, By Mouth, Daily, # 30 tablet, Refills 0, Tot. Refills 0, Maintenance, 11/21/16 13:37:11, Route to Pharmacy Electronically, [id number], [facility] 3 Start Date: 11/21/16 Stop Date: 12/21/16 Status: Ordered furosemide 40 mg oral tablet 40 mg, 1, tablet, By Mouth, Daily, # 30 tablet, Refills 1, Tot. Refills 1, Maintenance, 12/21/16 10:21:13, Route to Pharmacy Electronically, [id number], [facility] Start Date: [...] Maintenance, 11/21/16 13:36:07, Route to Pharmacy Electronically, [id number], [facility] 3 Start Date: 11/21/16 Stop Date: 12/21/16 [...] Maintenance, 11/21/16 13:38:18, Route to Pharmacy Electronically, [id number], [facility] 3 Start Date: 11/21/16 Stop Date: 12/21/16 [...]
--- OUTSIDE RECORDS SUMMARY | 2023-04-12 16:13 | XMS_ITS | Continuity of Care Document ---
Author Name Unknown Organization [facility] Address [address] [place] [address]- Care Team Providers Care Client Evaluator Name Role Phone South Baptiste MD Primary Care Physician [phone] [place] [facility] [place](s): 03/13/21 - 04/22/21 [facility] [address] [place] [address] Attending Physician: Oziel Harmon MD Admitting [...] Maintenance, 04/03/16 15:29:06, Route to Pharmacy Electronically, [id number], [facility] 3 Start Date: 04/03/16 Stop Date: 05/03/16 Status: Ordered atorvastatin 10 mg oral tablet 1 tablet = 10 mg, By Mouth, Daily, 0 Refills, Maintenance Start Date: 04/08/19 Status: Ordered atorvastatin 80 mg oral tablet = 80 mg, By Mouth, Daily at bedtime, # 30 tablet, 1 Refills, Maintenance, Tablet, Route to PharmacyElectronically, [id number], [facility] Start Date: [...] Maintenance, 11/21/16 13:36:48, Route to Pharmacy Electronically, [id number], [facility] 3 Start Date: 11/21/16 Stop Date: 12/21/16 Status: Ordered folic acid 1 mg oral tablet 1 mg, By Mouth, Daily, # 30 tablet, Refills 0, Tot. Refills 0, Maintenance, 11/21/16 13:37:11, Route to Pharmacy Electronically, [id number], [facility] 3 Start Date: 11/21/16 Stop Date: 12/21/16 Status: Ordered furosemide 40 mg oral tablet 40 mg, 1, tablet, By Mouth, Daily, # 30 tablet, Refills 1, Tot. Refills 1, Maintenance, 12/21/16 10:21:13, Route to Pharmacy Electronically, [id number], [facility] Start Date: [...] Maintenance, 11/21/16 13:36:07, Route to Pharmacy Electronically, [id number], [facility] 3 Start Date: 11/21/16 Stop Date: [...] Maintenance, 11/21/16 13:38:18, Route to Pharmacy Electronically, [id number], [facility] 3 Start Date: 11/21/16 Stop Date: [...]
--- OUTSIDE RECORDS SUMMARY | 2023-04-12 16:13 | XMS_ITS | Continuity of Care Document ---
Author Name Unknown Organization [facility] Address [address] [place] [address]- Care Team Providers Care Kiln Furniture Caster Name Role Phone South Baptiste MD Primary Care Physician [phone] Encounter [facility] Date(s): 03/31/20 - 06/16/20 [facility] [address] [place] [address] [facility] Attending Physician: Oziel Harmon MD Admitting [...] Maintenance, 04/03/16 15:29:06, Route to Pharmacy Electronically, [id number], [facility] 3 Start Date: 04/03/16 Stop Date: 05/03/16 Status: Ordered atorvastatin 10 mg oral tablet 1 tablet = 10 mg, By Mouth, Daily, 0 Refills, Maintenance Start Date: 04/08/19 Status: Ordered atorvastatin 80 mg oral tablet = 80 mg, By Mouth, Daily at bedtime, # 30 tablet, 1 Refills, Maintenance, Tablet, Route to PharmacyElectronically, [id number], [facility] Start Date: [...] Maintenance, 11/21/16 13:36:48, Route to Pharmacy Electronically, [id number], [facility] 3 Start Date: 11/21/16 Stop Date: 12/21/16 Status: Ordered folic acid 1 mg oral tablet 1 mg, By Mouth, Daily, # 30 tablet, Refills 0, Tot. Refills 0, Maintenance, 11/21/16 13:37:11, Route to Pharmacy Electronically, [id number], [facility] 3 Start Date: 11/21/16 Stop Date: 12/21/16 Status: Ordered furosemide 40 mg oral tablet 40 mg, 1, tablet, By Mouth, Daily, # 30 tablet, Refills 1, Tot. Refills 1, Maintenance, 12/21/16 10:21:13, Route to Pharmacy Electronically, [id number], [facility] Start Date: [...] Maintenance, 11/21/16 13:36:07, Route to Pharmacy Electronically, [id number], [facility] 3 Start Date: 11/21/16 Stop Date: 12/21/16 [...] Maintenance, 11/21/16 13:38:18, Route to Pharmacy Electronically, [id number], [facility] 3 Start Date: 11/21/16 Stop Date: 12/21/16 [...]
--- OUTSIDE RECORDS SUMMARY | 2023-04-12 16:13 | XMS_ITS | Continuity of Care Document ---
Author Name Unknown Organization [facility] Address [address] [place] [address]- Care Team Providers Care Platform Supervisor Name Role Phone South Baptiste MD Primary Care Physician [phone] Encounter [id number] Date(s): 02/25/20 - 03/06/20 [facility] [address] [place] [address]- [facility] Attending Physician: Dangelo Catherine Admitting Physician: [...] Maintenance, 04/03/16 15:29:06, Route to Pharmacy Electronically, [id number], [facility] 3 Start Date: 04/03/16 Stop Date: 05/03/16 Status: Ordered atorvastatin 10 mg oral tablet 1 tablet = 10 mg, By Mouth, Daily, 0 Refills, Maintenance Start Date: 04/08/19 Status: Ordered atorvastatin 80 mg oral tablet = 80 mg, By Mouth, Daily at bedtime, # 30 tablet, 1 Refills, Maintenance, Tablet, Route to PharmacyElectronically, [id number], [facility] Start Date: [...] Maintenance, 11/21/16 13:36:48, Route to Pharmacy Electronically, [id number], [facility] 3 Start Date: 11/21/16 Stop Date: 12/21/16 Status: Ordered folic acid 1 mg oral tablet 1 mg, By Mouth, Daily, # 30 tablet, Refills 0, Tot. Refills 0, Maintenance, 11/21/16 13:37:11, Route to Pharmacy Electronically, [id number], [facility] 3 Start Date: 11/21/16 Stop Date: 12/21/16 Status: Ordered furosemide 40 mg oral tablet 40 mg, 1, tablet, By Mouth, Daily, # 30 tablet, Refills 1, Tot. Refills 1, Maintenance, 12/21/16 10:21:13, Route to Pharmacy Electronically, [id number], [facility] Start Date: [...] Maintenance, 11/21/16 13:36:07, Route to Pharmacy Electronically, [id number], [facility] 3 Start Date: 11/21/16 Stop Date: 12/21/16 [...] Maintenance, 11/21/16 13:38:18, Route to Pharmacy Electronically, [id number], [facility] 3 Start Date: 11/21/16 [...]
[2023-04-12] MEDS: Piperacillin Sodium/Tazobactam 3.375 GM in 0.9 % Sodium Chloride 50 ML IV (16:16)
[2023-04-12 16:21] LABS: Estimated Average Glucose 108 mg/dL; Hemoglobin A1c % 5.4 %
[2023-04-12] MEDS: vancomycin/NS 2,000 MG/500 ML PLAST..BAG 250 MG IV (17:00)
[2023-04-12 17:26] LABS: Uric Acid 9.4 mg/dL (3.4-7.0)
--- NOTE | 2023-04-12 17:26 | PM.IMHP ---
History of Present Illness Date of Service: 04/12/23 <FEMI Coronel - Last Filed: 04/12/23 18:05> Attending physician on admission: Ranulfo Xavier <FEMI Coronel - Last Filed: 04/12/23 18:05> Chief Complaint: Left toe cellulitis <FEMI Coronel Last Filed: 04/12/23 18:05> Pt is a 68-year-old male with a PMH significant for?CAD with open heart surgery in 2015 [address] with [address] place, and hx of CVA who presents to the ED with?swelling, pain, and redness in third toe on left foot. Pt states he first noticed the redness on his toe last Saturday and it has progressively gotten worse and more painful. Pt now having difficulty walking secondary to pain. Pt is not diabetic and has no known injury, bite, or trauma to the area. No draining or discharge from the area. He denies fever, chills, nausea, vomiting. No diarrhea, abdominal pain. Denies chest pain/pressure, palpitations. In the ED labs were largely unremarkable: Stable H&H of 13.1/38.9, ESR mildly elevated at 19, C reactive protein mildly elevated at 1.38. Uric acid slightly elevated 0.4. X-ray of left foot found mild soft tissue swelling without acute underlying osseous abnormality. Arterial duplex scan of left lower extremity found no hemodynamically significant arterial stenosis. Venous duplex of left lower extremity found no evidence for DVT. Pt was treated with vanco and Zosyn in the ED. Pt will be admitted to the hospital under observation for further treatment and evaluation of cellulitis of the left 3rd toe. <FEMI Coronel Last Filed: 04/12/23 18:05> Review of Systems Review of Systems: Redness, swelling, and pain 3rd toe on left foot x1 week No fever, chills, nausea, vomiting, diarrhea Denies numbness or tingling in extremities No abdominal pain Denies chest pain/pressure, palpitations No shortness of breath <FEMI Coronel Last Filed: 04/12/23 18:05> Yes all other systems are reviewed and are negative <FEMI Coronel Last Filed: 04/12/23 18:05> [facility] Medical History: Medical History CVA (cerebral vascular accident) High cholesterol HTN (hypertension) Left ventricular aneurysm Tumor <FEMI Coronel - Last Filed: 04/12/23 18:05> Social History: Social History Household Members: Family Housing: Unknown / Unable to assess Do you presently have visiting nurse or other home services: No (unknown) Alcohol intake: current Alcohol intake frequency: 0-2 drinks per day Alcohol type: hard liquor Patient Tobacco Use Status: Current someday Tobacco user Tobacco use type: Cigar Smoked in Last 30 Days: Yes Use of substances other than those prescribed or required for medical reasons: No Advance Directives: No Advance Directives Information Provided: Yes Nutrition Risks: No Nutritional Risk service: No Current occupational status: retired <FEMI Coronel - Last Filed: 04/12/23 18:05> Meds Allergies/Adverse reactions: Allergies Allergy/AdvReac Type Severity Reaction Status Date / Time No Known Allergies Allergy Verified 10/01/20 20:33 <FEMI Coronel - Last Filed: 04/12/23 18:05> Active Medications: Current Medications Vancomycin HCl (Vancomycin/Ns) 2,000 mg in 500 mls @ 250 mls/hr IV ONCE ONE Stop: 04/12/23 18:35 Last Admin: 04/12/23 17:00 Dose: 250 mls/hr Pharmacy Consult (Consult Rx Perform Med Rec) 1 each MISCELLANE ONCE PRN PRN Reason: Consult order <FEMI Coronel - Last Filed: 04/12/23 18:05> Home medications: Home Medications Medication Instructions Recorded Confirmed Last Taken Type aspirin 81 mg tablet,delayed 81 mg PO DAILY 04/12/23 04/12/23 04/12/23 History release <FEMI Coronel - Last Filed: 04/12/23 18:05> Physical Exam Vital Signs and Narrative: Vital Signs: Last Vital Signs Temp 97 F 04/12/23 14:53 Pulse 65 04/12/23 16:09 Resp 18 04/12/23 16:09 BP 165/73 H 04/12/23 16:09 Pulse Ox 95 04/12/23 16:09 O2 Del Method Room Air 04/12/23 16:09 BMI result Body Mass Index 30.6 <FEMI Coronel - Last Filed: 04/12/23 18:05> Constitutional: Alert, in no acute distress. Mental Status: Oriented to person, place and time. Eyes: Pupils are equal, round, and reactive to light. Ear, Nose, and Throat: Oropharynx clear, mucous membranes moist. Ears and nose without deformities. Trachea midline. Respiratory: Clear to auscultation bilaterally. No wheezing, rales, or rhonchi. Cardiovascular: S1, S2 regular. No murmurs, rubs, or gallops. Gastrointestinal: Abdomen soft, non-tender, non-distended. Normal bowel sounds. Neurologic: Cranial nerves II-XII are grossly intact bilaterally. No focal neurological deficits. Moves all extremities spontaneously. Skin: Warm, dry. Extremities: Third toe of left foot swollen and erythematous with erythema extending into the dorsal aspect of the left foot. No drainage or obvious punture wound noted. Plese see picture below. ROM of third toe limited secondary to pain. Sensation to light touch intact bilaterally. Psychiatric: Normal mood and affect. <FEMI Coronel - Last Filed: 04/12/23 18:05> Results Labs CBC and Chem 7: 04/12/23 15:03 04/12/23 15:03 <FEMI Coronel - Last Filed: 04/12/23 18:05> Labs: Laboratory Results - last 24 hr 04/12/23 04/12/23 04/12/23 15:03 15:03 15:03 MCV 96.3 MCH 32.4 MCHC 33.7 RDW 13.7 Plt Count 288 MPV 9.8 Immature Gran % (Auto) 0.2 Neut % (Auto) 65.4 Lymph % (Auto) 22.4 Dickey % (Auto) 9.1 Eos % (Auto) 1.8 Baso % (Auto) 1.1 Lymph # (Auto) 1.9 Dickey # (Auto) 0.8 Eos # (Auto) 0.2 Baso # (Auto) 0.1 Abs Immat Gran (auto) 0.02 Absolute Neuts (auto) 5.5 Absolute Nucleated RBC 0.000 Nucleated RBC % (auto) 0.0 ESR 19 H Anion Gap 16 Estim Creat Clear Calc 79.4 Estimated GFR > 60 Random Glucose 129 H Estimat Average Glucose Hemoglobin A1c % Lactic Acid Calcium 9.7 D Magnesium 2.2 Total Bilirubin 0.4 AST 22 ALT 15 Alkaline Phosphatase 96 C-Reactive Protein 1.38 H Total Protein 7.4 Albumin 4.3 04/12/23 04/12/23 15:03 15:03 MCV MCH MCHC RDW Plt Count MPV Immature Gran % (Auto) Neut % (Auto) Lymph % (Auto) Dickey % (Auto) Eos % (Auto) Baso % (Auto) Lymph # (Auto) Dickey # (Auto) Eos # (Auto) Baso # (Auto) Abs Immat Gran (auto) Absolute Neuts (auto) Absolute Nucleated RBC Nucleated RBC % (auto) ESR Anion Gap Estim Creat Clear Calc Estimated GFR Random Glucose Estimat Average Glucose 108 Hemoglobin A1c % 5.4 Lactic Acid 1.7 Calcium Magnesium Total Bilirubin AST ALT Alkaline Phosphatase C-Reactive Protein Total Protein Albumin <FEMI Coronel - Last Filed: 04/12/23 18:05> Imaging Radiologist's Impressions: Impressions Foot X-Ray 04/12/23 15:18 IMPRESSION: Mild soft tissue swelling without acute underlying osseous abnormality. Duplex Scan Lower Extremity Artery 04/12/23 15:49 IMPRESSION: No hemodynamically significant arterial stenosis in the visualized arteries of the left lower extremity. Venous Duplex 04/12/23 15:57 IMPRESSION: No evidence for deep venous thrombosis in the visualized veins of the left lower extremity. <FEMI Coronel - Last Filed: 04/12/23 18:05> Assessment and Plan (1) Cellulitis: Status: Acute <FEMI Coronel - Last Filed: 04/12/23 18:05> Pt is a 68-year-old male with a PMH significant for?CAD with open heart surgery in [address], and hx of CVA who presents to the ED with?swelling, pain, and redness in third toe on left foot. Pt will be admitted to the hospital under observation for further treatment and evaluation of cellulitis of the left 3rd toe. Cellulitis of 3rd left toe Low concern for osteomyelitis: Patient not diabetic, ESR 19, CRP 1.38, x-ray negative for acute osseous changes, no foot wound noted Patient does not meet sepsis criteria IV ABX: Cefazolin 1 g IV q8 Follow cultures CAD Continue aspirin Will check lipid panel in the a.m., patient apparently not on statin History of CVA Continue aspirin Full Code Attending:?Dr. Xavier DVT Prophylaxis: Lovenox Patient will be admitted to the hospital on observation for treatment cellulitis of the 3rd toe of left foot with IV antibiotics. Pt will be admitted to the hospital under observation for further treatment and evaluation of cellulitis of the left 3rd toe. <FEMI Coronel - Last Filed: 04/12/23 18:05> Pt is a 68-year-old male with a PMH significant for?CAD with open heart surgery in 2015 and with [address], and hx of CVA who presents to the ED with?swelling, pain, and redness in third toe on left foot. Pt will be admitted to the hospital under observation for further treatment and evaluation of cellulitis of the left 3rd toe. Cellulitis of 3rd left toe Low concern for osteomyelitis: Patient not diabetic, ESR 19, CRP 1.38, x-ray negative for acute osseous changes, no foot wound noted Patient does not meet sepsis criteria IV ABX: Cefazolin 1 g IV q8 Follow cultures CAD Continue aspirin Will check lipid panel in the a.m., patient apparently not on statin History of CVA Continue aspirin obesity-encouraged to loose weight. Full Code Attending:?Dr. Xavier DVT Prophylaxis: Lovenox Patient will be admitted to the hospital on observation for treatment cellulitis of the 3rd toe of left foot with IV antibiotics. Pt will be admitted to the hospital under observation for further treatment and evaluation of cellulitis of the left 3rd toe. <Ranulfo Xavier MD - Last Filed: 04/13/23 10:00> Time Spent With Patient Time: Total time managing care of this patient today ____ minutes. <FEMI Coronel - Last Filed: 04/12/23 18:05> Quality Stroke Does the patient have a stroke diagnosis?: No <FEMI Coronel - Last Filed: 04/12/23 18:05> VTE Prior VTE?: No <FEMI Coronel - Last Filed: 04/12/23 18:05> VTE Risk Level:: Medical - moderate - high <FEMI Coronel Last Filed: 04/12/23 18:05> VTE Device Contraindication: Treatment Not Indicated <FEMI Coronel - Last Filed: 04/12/23 18:05> VTE Drug Contraindication: N/A - Med Ordered <FEMI Coronel - Last Filed: 04/12/23 18:05>
--- NOTE | 2023-04-12 17:32 | PHA.MEDREC ---
Pharmacy Consult ? Medication Reconciliation Pharmacy has completed the medication reconciliation. SPOKE WITH PATIENT IN ED. HE IS ONLY TAKING A BABY ASPIRIN DAILY.
[2023-04-12 18:16] VITALS: BP 188/96; PULSE 65; RESP 16; TEMP 36.6; O2SAT 99
--- NOTE | 2023-04-12 18:22 | MHC.EDTECH ---
PATIENT WAS SET UP WITH DINNER ,VITALS SIGN TAKEN ,MRSA SWAB COLLECTED AND SENT TO LAB .
[2023-04-12] MEDS: Enoxaparin Sodium 40 MG/0.4 ML SYRINGE SUBCUT (18:41)
[2023-04-12 19:51] VITALS: BP 150/79; PULSE 69; RESP 20; TEMP 36.3; O2SAT 97
[2023-04-12] MEDS: 0.9 % Sodium Chloride Flush 3 ML SYRINGE IVFLUSH (22:13)
[2023-04-12 23:46] VITALS: BP 182/76; PULSE 69; RESP 16; TEMP 36.8; O2SAT 97
[2023-04-13] VITALS (8 sets, daily range): BP systolic 161–209; BP diastolic 80–95; PULSE 53–71; RESP 16–20; TEMP 36.5–37; O2SAT 96–99
[2023-04-13 05:42] LABS: Cholesterol 183 mg/dL; HDL Cholesterol 49 mg/dL; LDL Cholesterol Calculated 80 mg/dl; Triglycerides 270 mg/dL
[2023-04-13] MEDS: Aspirin Enteric Coated 81 MG TABLET.DR PO (09:12)
[2023-04-13] MEDS: Acetaminophen 325 MG TABLET 975 MG PO ×3 (09:12→22:07)
[2023-04-13] MEDS: 0.9 % Sodium Chloride Flush 3 ML SYRINGE IVFLUSH ×3 (09:13→22:08)
--- NOTE | 2023-04-13 09:15 | MHC.CM.PN ---
Lives with sister and niece. Owns cane, no prior services. Still drives. At time of D/C, family to transport. CM to follow.
--- NOTE | 2023-04-13 09:26 | MHC.CM.PN ---
Primary Care ([facility]) pamphlet given to patient. CM to follow.
[2023-04-13 09:41] LABS: MRSA Nasal PCR NEGATIVE (Negative); SA Nasal PCR NEGATIVE (Negative)
[2023-04-13] MEDS: Losartan Potassium 25 MG TABLET PO (09:45)
--- NOTE | 2023-04-13 10:12 | P.PNIM_ITS ---
Subjective Subjective Date of Service: 04/13/23 Interval History: left 3rd toe/front cellulitis Review of Systems Foot area erythema slightly improving No fever or chills Denies any chest pain or shortness breath id Physical Exam Vital Signs: Vital Signs: Last Vital Signs Temp 97.9 F 04/13/23 07:17 Pulse 53 04/13/23 07:17 Resp 20 04/13/23 07:17 BP 195/84 H 04/13/23 07:17 Pulse Ox 97 04/13/23 07:17 O2 Del Method Room Air 04/13/23 07:17 BMI result Body Mass Index 30.6 Appearance: Alert.? Oriented X3.? cvs: rrr, [id number] . res: clear to auscultation ,no rhonchii or wheezing abd: no rebound or guarding ,nt, bs present. ext : left toe area -still has erythema-little improving ,pulses present , no cyanosis neuro: axo3 , nonfocal. Objective Data Active Medications Acetaminophen (Acetaminophen 325 Mg Tablet) 975 mg PO Q8H [facility] Last Admin: 04/13/23 09:12 Dose: 975 mg Documented By: LANE Aspirin (Aspirin Enteric Coated 81 Mg Tablet.) 81 mg PO DAILY [facility] Last Admin: 04/13/23 09:12 Dose: 81 mg Documented By: LANE Docusate Sodium (Docusate Sodium 100 Mg Capsule) 100 mg PO DAILY PRN PRN Reason: Constipation Enoxaparin Sodium (Enoxaparin Sodium 40 Mg/0.4 Ml Syringe) 40 mg SUBCUT Q24H [facility] Last Admin: 04/12/23 18:41 Dose: 40 mg Documented By: HERBIE Cefazolin Sodium/Dextrose (Ancef) 2 gm in 50 mls @ 100 mls/hr IV Q8H [facility] Losartan Potassium (Losartan Potassium 25 Mg Tablet) 25 mg PO DAILY [facility]; Protocol Ondansetron HCl (Ondansetron Hcl 4 Mg/2 Ml Vial) 4 mg IVPUSH Q8H PRN PRN Reason: Nausea and Vomiting Oxycodone HCl (Oxycodone Hcl Immed Release 5 Mg Tablet) 5 mg PO Q4H PRN PRN Reason: Pain, Mild (Pain Scale 1-3) Pharmacy Consult (Consult Rx Perform Med Rec) 1 each MISCELLANE ONCE PRN PRN Reason: Consult order Sodium Chloride (0.9 % Sodium Chloride Flush 3 Ml Syringe) 3 ml IVFLUSH QSHIFT [facility] Last Admin: 04/13/23 09:13 Dose: 3 ml Documented By: LANE Labs 04/12/23 15:03 04/12/23 15:03 Labs: Laboratory Results - last 24 hr 04/12/23 04/12/23 04/12/23 15:03 15:03 15:03 MCV 96.3 MCH 32.4 MCHC 33.7 RDW 13.7 Plt Count 288 MPV 9.8 Immature Gran % (Auto) 0.2 Neut % (Auto) 65.4 Lymph % (Auto) 22.4 Dundy % (Auto) 9.1 Eos % (Auto) 1.8 Baso % (Auto) 1.1 Lymph # (Auto) 1.9 Dundy # (Auto) 0.8 Eos # (Auto) 0.2 Baso # (Auto) 0.1 Abs Immat Gran (auto) 0.02 Absolute Neuts (auto) 5.5 Absolute Nucleated RBC 0.000 Nucleated RBC % (auto) 0.0 ESR 19 H Anion Gap 16 Estim Creat Clear Calc 79.4 Estimated GFR > 60 Random Glucose 129 H Estimat Average Glucose Hemoglobin A1c % Lactic Acid Uric Acid 9.4 H Calcium 9.7 D Magnesium 2.2 Total Bilirubin 0.4 AST 22 ALT 15 Alkaline Phosphatase 96 C-Reactive Protein 1.38 H Total Protein 7.4 Albumin 4.3 Triglycerides Cholesterol LDL Cholesterol, Calc HDL Cholesterol Nasal Screen MRSA (PCR) Nasal S. aureus Screen Nasal MRSA/S.aureus Interp 04/12/23 04/12/23 04/12/23 15:03 15:03 18:21 MCV MCH MCHC RDW Plt Count MPV Immature Gran % (Auto) Neut % (Auto) Lymph % (Auto) Dundy % (Auto) Eos % (Auto) Baso % (Auto) Lymph # (Auto) Dundy # (Auto) Eos # (Auto) Baso # (Auto) Abs Immat Gran (auto) Absolute Neuts (auto) Absolute Nucleated RBC Nucleated RBC % (auto) ESR Anion Gap Estim Creat Clear Calc Estimated GFR Random Glucose Estimat Average Glucose 108 Hemoglobin A1c % 5.4 Lactic Acid 1.7 Uric Acid Calcium Magnesium Total Bilirubin AST ALT Alkaline Phosphatase C-Reactive Protein Total Protein Albumin Triglycerides Cholesterol LDL Cholesterol, Calc HDL Cholesterol Nasal Screen MRSA (PCR) NEGATIVE Nasal S. aureus Screen NEGATIVE Nasal MRSA/S.aureus Interp SEE NOTE 04/13/23 05:02 MCV MCH MCHC RDW Plt Count MPV Immature Gran % (Auto) Neut % (Auto) Lymph % (Auto) Dundy % (Auto) Eos % (Auto) Baso % (Auto) Lymph # (Auto) Dundy # (Auto) Eos # (Auto) Baso # (Auto) Abs Immat Gran (auto) Absolute Neuts (auto) Absolute Nucleated RBC Nucleated RBC % (auto) ESR Anion Gap Estim Creat Clear Calc Estimated GFR Random Glucose Estimat Average Glucose Hemoglobin A1c % Lactic Acid Uric Acid Calcium Magnesium Total Bilirubin AST ALT Alkaline Phosphatase C-Reactive Protein Total Protein Albumin Triglycerides 270 Cholesterol 183 LDL Cholesterol, Calc 80 HDL Cholesterol 49 Nasal Screen MRSA (PCR) Nasal S. aureus Screen Nasal MRSA/S.aureus Interp Assessment and Plan (1) Cellulitis: Status: Acute Plan 68-year-old male with a PMH significant for?CAD with open heart surgery in 2014 [address] with [address], and hx of CVA who presents to the ED with?swelling, pain, and redness in third toe on left foot. Pt will be admitted to the hospital under observation for further treatment and evaluation of cellulitis of the left 3rd toe. Cellulitis of 3rd left toe and front foot - ? Patient not diabetic, ESR 19, CRP 1.38, x-ray negative for acute osseous changes, no foot wound noted IV ABX:? Cefazolin 2g IV q8 Follow cultures CAD Continue aspirin Will check lipid panel in the a.m., patient apparently not on statin History of CVA Continue aspirin uncontrolled htn: says he stop taking his medications .could not fill up. started on losartan obesity-encouraged to loose weight. Full Code Attending:?Dr. Xavier DVT Prophylaxis: Lovenox need for iongoing stay:treatment cellulitis of the 3rd toe of left foot with IV antibiotics-not ooptimal response yet, dosing of antibiotics adjusted ,blood culture pending ,mayneed Id eval if not improve. Time Spent With Patient Time: Total time managing care of this patient today ____ minutes. Quality Stroke Does the patient have a stroke diagnosis?: No VTE Prior VTE?: No VTE Risk Level:: Medical - moderate - high VTE Device Contraindication: Treatment Not Indicated VTE Drug Contraindication: N/A - Med Ordered
[2023-04-13] MEDS: ceFAZolin Sodium/Dextrose,Iso 2 GM/50 ML PIGGYBACK IV ×2 (14:57→22:07)
[2023-04-13] MEDS: amLODIPine Besylate 2.5 MG TABLET PO (16:06)
[2023-04-13] MEDS: Enoxaparin Sodium 40 MG/0.4 ML SYRINGE SUBCUT (18:19)
[2023-04-13] MEDS: hydrALAZINE HCl 20 MG/ML VIAL 5 MG IVPUSH (18:40)
--- NOTE | 2023-04-13 23:20 | P.CNID_ITS ---
History of Present Illness Data of Consult Service Date: 04/13/23 Requesting physician: Ranulfo Xavier Primary Care Provider: None Physician HPI Reason for consult: swelling left third toe He presents with swelling and pain left third toe for a week. He denies inactivity. He had no trauma or bites to area and is not diabetic nor has tinea pedis. He has no elevated temperature. Area is very painful and uric acid 9.4 blood cultures negative. Review of Systems Review of Systems: Yes all other systems are reviewed and are negative [facility] Past Medical History Medical History (Updated 04/13/23 @ 23:25 by Talia Benedict MD) CVA (cerebral vascular accident) High cholesterol HTN (hypertension) Left ventricular aneurysm Toe erythema Tumor Family History Family history: reviewed and not pertinent Social History Social History Household Members: Family Housing: Unknown / Unable to assess Do you presently have visiting nurse or other home services: No (unknown) Alcohol intake: current Alcohol intake frequency: 0-2 drinks per day Alcohol type: hard liquor Patient Tobacco Use Status: Current someday Tobacco user Tobacco use type: Cigar Smoked in Last 30 Days: Yes Use of substances other than those prescribed or required for medical reasons: No Advance Directives: No Advance Directives Information Provided: Yes Nutrition Risks: No Nutritional Risk service: No Current occupational status: retired Meds Allergies Allergy/AdvReac Type Severity Reaction Status Date / Time No Known Allergies Allergy Verified 10/01/20 20:33 Active Medications: Current Medications Acetaminophen (Acetaminophen 325 Mg Tablet) 975 mg PO Q8H [facility] Last Admin: 04/13/23 22:07 Dose: 975 mg Amlodipine Besylate (Amlodipine Besylate 2.5 Mg Tablet) 2.5 mg PO DAILY [facility]; Protocol Last Admin: 04/13/23 16:06 Dose: 2.5 mg Aspirin (Aspirin Enteric Coated 81 Mg Tablet.Dr) 81 mg PO DAILY [facility] Last Admin: 04/13/23 09:12 Dose: 81 mg Docusate Sodium (Docusate Sodium 100 Mg Capsule) 100 mg PO DAILY PRN PRN Reason: Constipation Enoxaparin Sodium (Enoxaparin Sodium 40 Mg/0.4 Ml Syringe) 40 mg SUBCUT Q24H [facility] Last Admin: 04/13/23 18:19 Dose: 40 mg Cefazolin Sodium/Dextrose (Ancef) 2 gm in 50 mls @ 100 mls/hr IV Q8H [facility] Last Infusion: 04/13/23 22:41 Dose: Infused Losartan Potassium (Losartan Potassium 25 Mg Tablet) 25 mg PO DAILY [facility]; Protocol Ondansetron HCl (Ondansetron Hcl 4 Mg/2 Ml Vial) 4 mg IVPUSH Q8H PRN PRN Reason: Nausea and Vomiting Oxycodone HCl (Oxycodone Hcl Immed Release 5 Mg Tablet) 5 mg PO Q4H PRN PRN Reason: Pain, Mild (Pain Scale 1-3) Pharmacy Consult (Consult Rx Perform Med Rec) 1 each MISCELLANE ONCE PRN PRN Reason: Consult order Sodium Chloride (0.9 % Sodium Chloride Flush 3 Ml Syringe) 3 ml IVFLUSH QSHIFT [facility] Last Admin: 04/13/23 22:08 Dose: 3 ml Home Medications Medication Instructions Recorded Confirmed Last Taken Type aspirin 81 mg tablet,delayed 81 mg PO DAILY 04/12/23 04/12/23 04/12/23 History release Physical Exam Vital Signs: Vital Signs: Last Vital Signs Temp 98.6 F 04/13/23 19:29 Pulse 71 04/13/23 19:29 Resp 18 04/13/23 19:29 BP 181/86 H 04/13/23 19:29 Pulse Ox 99 04/13/23 19:29 O2 Del Method Room Air 04/13/23 19:29 BMI result Body Mass Index 30.6 Extrem: Other: bright red swollen toe with demarcation where toe ends Results Labs 04/12/23 15:03 04/12/23 15:03 Microbiology Microbiology Results: Microbiology 04/12/23 16:14 Blood - Venous Blood Culture - Preliminary No growth after 24 hours. 04/12/23 15:03 Blood - Venous Blood Culture - Preliminary No growth after 24 hours. Assessment and Plan (1) Toe erythema: Status: Acute This is consistent with gout. He has unremarkable venous and arterial studies. He has no elevated WBC or fever. He has no OM on XRay. There are no injuries. There doesnt seem to be any reason for isolated toe infection and blood culture negative. Plan Stop Kefzol. Start steroids. If not improving with gout treatment would check MRI toe. Time Spent With Patient Time: Total time managing care of this patient today ____ minutes.
[2023-04-14] MEDS: hydrALAZINE HCl 20 MG/ML VIAL 5 MG IVPUSH (00:12)
[2023-04-14] MEDS: Losartan Potassium 25 MG TABLET PO (00:12)
[2023-04-14] MEDS: amLODIPine Besylate 2.5 MG TABLET PO ×2 (00:12→07:49)
--- NOTE | 2023-04-14 00:17 | MHC.PIE ---
p; b/p 197/95, pt denies chest pain or dizziness. note; note; florinda and connor not scheduled till am i; dr james notified; new order hydralazine 5 mg iv now. florinda now, connor now e; will cont to monitor
[2023-04-14 03:20] VITALS: BP 180/78; PULSE 60; RESP 18; TEMP 36.4; O2SAT 96
[2023-04-14 07:12] VITALS: BP 173/77; PULSE 60; RESP 20; TEMP 36.6; O2SAT 96
[2023-04-14] MEDS: Atorvastatin Calcium 20 MG TABLET PO (07:49)
[2023-04-14] MEDS: Losartan Potassium 50 MG TABLET PO (07:50)
[2023-04-14] MEDS: predniSONE 20 MG TABLET 40 MG PO (07:50)
[2023-04-14] MEDS: Aspirin Enteric Coated 81 MG TABLET.DR PO (07:50)
[2023-04-14] MEDS: 0.9 % Sodium Chloride Flush 3 ML SYRINGE IVFLUSH (07:52)
--- NOTE | 2023-04-14 10:18 | PM.DS ---
DS: Providers Provider Date of Service: 04/14/23 Date of admission: 04/12/23 17:33 Date of discharge: 04/14/23 Primary care physician: None Physician Consults: 04/13/23 10:16 Consult to Infectious Diseases Routine Consulting Provider: [facility] [place] Infectious Disease Reason for consultation: foot celulitis Has provider been notified: No Attending physician on discharge: Ranulfo Xavier Discharging clinician: Ranulfo Xavier DS: Diagnosis Discharge Diagnosis (1) Toe erythema: Status: Acute (2) Gout flare: Status: Acute (3) HTN (hypertension): Status: Acute (4) High cholesterol: Status: Acute DS: Summary Hospital Course Hospital Course: 68-year-old male with a PMH significant for?CAD with open heart surgery in [address] in [address], and hx of CVA who presents to the ED with?swelling, pain, and redness in third toe on left foot. Pt states he first noticed the redness on his toe last Saturday and it has progressively gotten worse and more painful. Pt now having difficulty walking secondary to pain. Pt is not diabetic and has no known injury, bite, or trauma to the area. No draining or discharge from the area. He denies fever, chills, nausea, vomiting. No diarrhea, abdominal pain. Denies chest pain/pressure, palpitations. In the ED labs were largely unremarkable:? Stable H&H of 13.1/38.9, ESR mildly elevated at 19, C reactive protein mildly elevated at 1.38.? Uric acid slightly elevated 0.4.? X-ray of left foot found mild soft tissue swelling without acute underlying osseous abnormality.? Arterial duplex scan of left lower extremity found no hemodynamically significant arterial stenosis.? Venous duplex of left lower extremity found no evidence for DVT. Pt was treated with vanco and Zosyn in the ED. Pt will be admitted to the hospital under observation for further treatment and evaluation of cellulitis of the left 3rd toe. Hospital course: Patient was admitted for left 3rd toe erythema/pain: Patient was initially started with IV antibiotics suspicion of cellulitis, uric acid levels and also blood cultures added: Patient was antibiotic initially, uric acid is found to be elevated, blood culture negative, seen infectious disease-seems likely gout flare: Patient was strongly advised to quit alcohol use, also added prednisone taper for gout flare. Patient was strongly advised to follow-up with PCP outpatient , may consider outpatient allopurinal. uncontrolled htn: possible due to not taking his htn medication outpatient. added losartan as well as amlodipine. dyslipidemia : has hx of cva , we will add small dose atorvastatin. plan: Complete the course of taper steroids,may consider outpatient allopurinal. Strongly advised to quit alcohol. Strongly advised compliance with blood pressure medications-losartan 50 mg daily, amlodipine 2.5 mg daily. Also advised to check lipid profile out patiently and continue as atorvastatin. With above management discussed with the patient in detail length she understand and in agreement with the above plan, time spent 50 minute. Time Spent with Patient Time attestation: Total time managing care of this patient today ____ minutes. Discharge coordination time: Greater than 30 minutes Quality: Safe Use of Opioids Does Pt have an Active Cancer Diagnosis on the Problem List?: No Quality: Stroke Does the patient have a stroke diagnosis?: No Physical Exam Vital Signs: Vital Signs: Last Vital Signs Temp 97.9 F 04/14/23 07:12 Pulse 60 04/14/23 07:12 Resp 20 04/14/23 07:12 BP 173/77 H 04/14/23 07:12 Pulse Ox 96 04/14/23 07:12 O2 Del Method Room Air 04/14/23 07:12 BMI result Body Mass Index 30.6 Appearance: Alert.? Oriented X3.? cvs: rrr, [id number] . res: clear to auscultation ,no rhonchii or wheezing abd: no rebound or guarding ,nt, bs present. ext : left toe area -seems significantly better ,minimum pain/eythema ,pulses present , no cyanosis neuro: axo3 , nonfocal. DS: Data Data Completed and Pending Labs on day of discharge: Preliminary micro results at discharge 04/12/23 16:14 Blood Culture - Preliminary Blood - Venous No growth after 24 hours. 04/12/23 15:03 Blood Culture - Preliminary Blood - Venous No growth after 24 hours. Discharge Plan Discharge Anticipated Discharge Date/Time: 04/14/23 10:18 Patient Disposition: Home, Self-Care Discharge Diagnosis: gout flare ,uncontrolled htn ,dyslipidemia Referrals: Physician,None [Primary Care Provider] - 1 Week Discharge Medications: New atorvastatin 20 mg Tablet 20 mg PO DAILY Qty: 30 0RF docusate sodium 100 mg Capsule 100 mg PO DAILY PRN (Reason: Constipation) Qty: 30 0RF losartan 50 mg Tablet 50 mg PO DAILY Qty: 30 0RF Protocol: Hold for SBP< HOLD for SBP < : 90 acetaminophen 325 mg Tablet 975 mg PO Q8H Qty: 10 0RF amlodipine 2.5 mg Tablet 2.5 mg PO DAILY Qty: 30 0RF Protocol: Hold for SBP< HOLD for SBP < : 90 prednisone 10 mg tablet See Taper PO DIRECTED Qty: 26 0RF Taper: Prednisone 40 mg daily for 2 Days and 0 Hour 30 mg daily for 3 Days and 0 Hour 20 mg daily for 3 Days and 0 Hour 10 mg daily for 3 Days and 0 Hour Rx Instructions: see taper instructions Continued aspirin 81 mg Tablet,Delayed Release (Dr/Ec) 81 mg PO DAILY Discharge Orders: Discharge Order (Routine); Ordered 04/14/23 Ordered By: Ranulfo Xavier Diet: Low salt diet Activity on Discharge: As tolerated Stand Alone Forms: Patient Portal Discharge page Care Plan Goals: Patient was admitted for left 3rd toe erythema/pain: Patient was initially started with IV antibiotics suspicion of cellulitis, uric acid levels and also blood cultures added: Patient was antibiotic initially, uric acid is found to be elevated, blood culture negative, seen infectious disease-seems likely gout flare: Patient was strongly advised to quit alcohol use, also added prednisone taper for gout flare. Patient was strongly advised to follow-up with PCP outpatient , may consider outpatient allopurinal. uncontrolled htn: possible due to not taking his htn medication outpatient. added losartan as well as amlodipine. dyslipidemia : has hx of cva , we will add small dose atorvastatin Patient is going to range PCP appointment on his own. Health Concerns: as above. Plan of Treatment: as above. Assessment: as above. Patient Instructions: Low Fat Diet (DC), Gout (DC), Chronic Hypertension (DC)
--- NOTE | 2023-04-14 10:38 | MHC.CM.PN ---
DC HOME TODAY, NO SERVICES VIA FAMILY TRANSPORT
== END 2023-04-14 11:56 | disposition home or self-care (01) ==
LOC: HO.ED 16:53 → HO.EDOVER 17:44 → HO.S3 18:54
PROVIDERS: Physician Assistant; Physician Assistant Medical; Admitting Provider Student in an Organized Health Care Education/Training Program; Emergency Provider Emergency Medicine Emergency Medical Services; Visit Provider Internal Medicine
DX: L03.032 Cellulitis of left toe (principal); M10.9 Gout, unspecified; M79.672 Pain in left foot; R60.0 Localized edema; I10 Essential (primary) hypertension; E78.5 Hyperlipidemia, unspecified; F17.200 Nicotine dependence, unspecified, uncomplicated; Z86.73 Personal history of transient ischemic attack (TIA), and cerebral infarction without residual deficits; Z79.02 Long term (current) use of antithrombotics/antiplatelets; Z79.899 Other long term (current) drug therapy; Z79.82 Long term (current) use of aspirin
CPT/HCPCS: 36415; 73630; 80053; 80061; 83036; 83605; 83735; 84550; 85025; 85652; 86140; 87040; 87640; 87641; 93926; 93971; 96365; 96366; 96367; 96372; 96375; 96376; 99221; 99285; J0690; J1650; J2543; J3370